=== PATIENT | female | born 2000 | race African-American/Black ===

== ENCOUNTER 2021-07-23 22:35 | Emergency (ER) | payer BC ==
--- NOTE | 2021-07-23 22:39 | ERPHSYRPT ---
- History of Present Illness Time Seen by Provider: 07/23/21 22:39 Historian: patient Exam Limitations: no limitations Physician History: This is a 21-year-old obese female who concluded her last menstrual period 3 days ago and presents with right flank and right lower quadrant abdominal pain. It is been present and worsening over the last 3 days. She has had no associated nausea, vomiting or diarrhea. She does have a family history of ovarian cyst. She is had no prior abdominal surgeries. Patient denies chest pain. Patient denies shortness of breath. Patient drove herself to the hospital and does not want any narcotic pain medicine at this time. She denies dysuria. She denies hematuria. The pain is described as sharp. She has never had this pain before Quality: sharpness (Right) Abdominal Pain Onset Location: RLQ, flank Pain Radiation: RLQ, flank (Right) Severity of Pain-Max: mild Severity of Pain-Current: mild Modifying Factors: Improves With: nothing Associated Symptoms: denies symptoms Previous symptoms: no prior history Allergies/Adverse Reactions: No Known Drug Allergies Allergy (Verified 07/23/21 22:47) Home Medications: No Reportable Medications [No Reported Medications] 07/23/21 [History] Travel Risk - International Travel Have you traveled outside of the country in past 3 weeks: No - Coronavirus Screening Are you exhibiting any of the following symptoms?: No Close contact with a COVID-19 positive Pt in past 14-21 Days: No - Review of Systems Constitutional: No Symptoms Eyes: No Symptoms Ears, Nose, & Throat: No Symptoms Respiratory: No Symptoms Cardiac: No Symptoms Abdominal/Gastrointestinal: Abdominal Pain Genitourinary Symptoms: Flank Pain (Right) Musculoskeletal: No Symptoms Skin: No Symptoms Neurological: No Symptoms Psychological: No Symptoms Endocrine: No Symptoms Hematologic/Lymphatic: No Symptoms Immunological/Allergic: No Symptoms All Other Systems: Reviewed and Negative - Past Medical History Pertinent Past Medical History: No - Past Surgical History Past Surgical History: No - Nursing Vital Signs Nursing Vital Signs: Initial Vital Signs Temperature 98.9 F 07/23/21 22:48 Pulse Rate 105 H 07/23/21 22:48 Respiratory Rate 18 07/23/21 22:48 Blood Pressure 128/72 07/23/21 22:48 O2 Sat by Pulse Oximetry 100 07/23/21 22:48 Pain Scale Pain Intensity 4 - Physical Exam General Appearance: no apparent distress, alert, anxiety, obese Eye Exam: PERRL/EOMI, eyes nml inspection Ears, Nose, Throat Exam: normal ENT inspection, moist mucous membranes Neck Exam: normal inspection, non-tender, supple, full range of motion Respiratory Exam: normal breath sounds, lungs clear, airway intact, No chest tenderness, No respiratory distress Cardiovascular Exam: regular rate/rhythm, normal heart sounds, normal peripheral pulses Gastrointestinal/Abdomen Exam: soft, normal bowel sounds, tenderness (Right lower quadrant), guarding (Right lower quadrant), rebound (Right lower quadrant) Pelvic Exam: not done Rectal Exam: not done Back Exam: normal inspection, normal range of motion, No CVA tenderness, No vertebral tenderness Extremity Exam: normal inspection, normal range of motion, pelvis stable Neurologic Exam: alert, oriented x 3, cooperative, fisher eel II-XII nml as tested, normal mood/affect, nml cerebellar function, nml station & gait, sensation nml Skin Exam: normal color, warm, dry Lymphatic Exam: No adenopathy SpO2 Interpretation: normal O2 Delivery: Room Air Ordered Tests: Active Orders 24 hr Category Date Time Status IV Insertion STAT Care 07/23/21 23:06 Active ABDOMEN AND PELVIS W/0 CONTRAS [CT] Stat Exams 07/24/21 00:23 Taken AMYLASE Stat Lab 07/23/21 22:50 Completed CBC W DIFF Stat Lab 07/23/21 22:50 Completed CMP Stat Lab 07/23/21 22:50 Completed CULTURE,URINE Stat Lab 07/23/21 23:08 Received HCG,QUALITATIVE URINE Stat Lab 07/23/21 23:08 Completed LIPASE Stat Lab 07/23/21 22:50 Completed UA W/RFX CULTURE Stat Lab 07/23/21 23:08 Completed Medication Summary Discontinued Medications Generic Name Dose Route Start Last Admin Trade Name Freq PRN Reason Stop Dose Admin Ketorolac Tromethamine 30 mg 07/23/21 23:06 07/23/21 23:09 Ketorolac Tromethamine 30 Mg/Ml Inj IV 07/23/21 23:07 30 mg STAT ONE Administration Ketorolac Tromethamine Confirm 07/23/21 23:08 Ketorolac Tromethamine 30 Mg/Ml Inj Administered 07/23/21 23:09 Dose 30 mg .ROUTE .[employer] ONE Lab/Rad Data: Laboratory Result Diagrams 07/23/21 22:50 07/23/21 22:50 Laboratory Results 07/23/21 07/23/21 07/23/21 Range/Units 23:08 23:08 22:50 WBC (4.0-10.5) x10^3/uL RBC (4.1-5.4) x10^6/uL Hgb (12.0-16.0) g/dL Hct (35-47) % MCV (78-100) fL MCH (26-32) pg MCHC (32-36) g/dL RDW (11.5-14.0) % Plt Count (150-450) x10^3/uL MPV (7.5-11.0) fL Gran % (36.0-66.0) % Immature Gran % (Auto) (0.00-0.4) % Nucleat RBC Rel Count (0.00-0.1) % Eos # (Auto) (0-0.5) x10^3/uL Immature Gran # (Auto) (0.00-0.03) x10^3u/L Absolute Lymphs (auto) (1.0-4.6) x10^3/uL Absolute Monos (auto) (0.0-1.3) x10^3/uL Absolute Nucleated RBC (0.00-0.01) x10^3u/L Lymphocytes % (24.0-44.0) % Monocytes % (0.0-12.0) % Eosinophils % (0.00-5.0) % Basophils % (0.0-0.4) % Absolute Granulocytes (1.4-6.9) x10^3/uL Basophils # (0-0.4) x10^3/uL Sodium 136 L (137-145) mmol/L Potassium 4.6 (3.5-5.1) mmol/L Chloride 104 (98-107) mmol/L Carbon Dioxide 25 (22-30) mmol/L Anion Gap 11.1 (5-15) MEQ/L BUN 11 (7-17) mg/dL Creatinine 0.97 (0.52-1.04) mg/dL Estimated GFR > 60.0 ML/MIN Glucose 85 (74-106) mg/dL Calcium 8.8 (8.4-10.2) mg/dL Total Bilirubin 0.70 (0.2-1.3) mg/dL AST 22 (14-36) U/L ALT 17 (0-35) U/L Alkaline Phosphatase 52 (38-126) U/L Serum Total Protein 7.1 (6.3-8.2) g/dL Albumin 3.7 (3.5-5.0) g/dL Amylase 59 (30-110) U/L Lipase 100 (23-300) U/L Urinalys Dipstick Clnc MAIN LAB Urine Color YELLOW (YELLOW) Urine Appearance CLEAR (CLEAR) Urine pH 5.5 (5-6) Ur Specific Boley 1.020 (1.005-1.025) POC Urine Protein Conf NEGATIVE (Negative) Urine Ketones NEGATIVE (NEGATIVE) Urine Nitrite NEGATIVE (NEGATIVE) Urine Bilirubin NEGATIVE (NEGATIVE) Urine Urobilinogen 0.2 (0-1) mg/dL Urine Leukocytes MODERATE (NEGATIVE) Urine WBC (Auto) 16-25 (0-5) /HPF Urine RBC (Auto) 16-25 (0-2) /HPF U Epithel Cells (Auto) RARE (FEW) /HPF Urine Bacteria (Auto) MANY (NEGATIVE) /HPF Urine RBC SMALL (0-5) Hai/ul Urine Mucus (Auto) SLIGHT (NEGATIVE) /HPF Ur Culture Indicated? YES Urine Glucose NEGATIVE (NEGATIVE) mg/dL Urine HCG, Qual NEGATIVE (Negative) 07/23/21 Range/Units 22:50 WBC 19.1 H (4.0-10.5) x10^3/uL RBC 4.65 (4.1-5.4) x10^6/uL Hgb 11.2 L (12.0-16.0) g/dL Hct 36.2 (35-47) % MCV 77.8 L (78-100) fL MCH 24.1 L (26-32) pg MCHC 30.9 L (32-36) g/dL RDW 19.7 H (11.5-14.0) % Plt Count 222 (150-450) x10^3/uL MPV 11.4 H (7.5-11.0) fL Gran % 79.3 H (36.0-66.0) % Immature Gran % (Auto) 0.4 (0.00-0.4) % Nucleat RBC Rel Count 0.0 (0.00-0.1) % Eos # (Auto) 0.03 (0-0.5) x10^3/uL Immature Gran # (Auto) 0.07 H (0.00-0.03) x10^3u/L Absolute Lymphs (auto) 2.66 (1.0-4.6) x10^3/uL Absolute Monos (auto) 1.17 (0.0-1.3) x10^3/uL Absolute Nucleated RBC 0.00 (0.00-0.01) x10^3u/L Lymphocytes % 13.9 L (24.0-44.0) % Monocytes % 6.1 (0.0-12.0) % Eosinophils % 0.2 (0.00-5.0) % Basophils % 0.1 (0.0-0.4) % Absolute Granulocytes 15.13 H (1.4-6.9) x10^3/uL Basophils # 0.02 (0-0.4) x10^3/uL Sodium (137-145) mmol/L Potassium (3.5-5.1) mmol/L Chloride (98-107) mmol/L Carbon Dioxide (22-30) mmol/L Anion Gap (5-15) MEQ/L BUN (7-17) mg/dL Creatinine (0.52-1.04) mg/dL Estimated GFR ML/MIN Glucose (74-106) mg/dL Calcium (8.4-10.2) mg/dL Total Bilirubin (0.2-1.3) mg/dL AST (14-36) U/L ALT (0-35) U/L Alkaline Phosphatase (38-126) U/L Serum Total Protein (6.3-8.2) g/dL Albumin (3.5-5.0) g/dL Amylase (30-110) U/L Lipase (23-300) U/L Urinalys Dipstick Clnc Urine Color (YELLOW) Urine Appearance (CLEAR) Urine pH (5-6) Ur Specific Boley (1.005-1.025) POC Urine Protein Conf (Negative) Urine Ketones (NEGATIVE) Urine Nitrite (NEGATIVE) Urine Bilirubin (NEGATIVE) Urine Urobilinogen (0-1) mg/dL Urine Leukocytes (NEGATIVE) Urine WBC (Auto) (0-5) /HPF Urine RBC (Auto) (0-2) /HPF U Epithel Cells (Auto) (FEW) /HPF Urine Bacteria (Auto) (NEGATIVE) /HPF Urine RBC (0-5) Hai/ul Urine Mucus (Auto) (NEGATIVE) /HPF Ur Culture Indicated? Urine Glucose (NEGATIVE) mg/dL Urine HCG, Qual (Negative) - Progress Progress: improved, pain not gone completely Progress Note: 07/24/21 01:40 CAT scan of the abdomen and pelvis without contrast shows several enlarged mesenteric lymph nodes in the right lower quadrant region. This is consistent with mesenteric adenitis. The appendix is visualized and there is no evidence of appendicitis. Reproductive organs are unremarkable. Counseled pt/family regarding: lab results, diagnosis, need for follow-up, rad results - Departure Departure Disposition: Home Clinical Impression: Mesenteric adenitis Condition: Stable Critical Care Time: No Additional Instructions: Drink plenty of fluids. Use Tylenol and ibuprofen for pain and fever control. Follow-up with your primary care physician for further management.
[2021-07-23] MEDS ORDERED: TORAdol 30 mg Injection IV ONE (23:06)
[2021-07-23] MEDS ORDERED: TORAdol 30 mg Injection ONE (23:08)
[2021-07-23 23:20] LABS: Absolute Neutrophil Ct (ANC) 15.13 x10^3/uL (1.4-6.9); Basophil (Absolute #) 0.02 x10^3/uL (0-0.4); Eosinophil % 0.2 % (0.00-5.0); Eosinophil (Absolute #) 0.03 x10^3/uL (0-0.5); Hematocrit 36.2 % (35-47); Hemoglobin 11.2 g/dL (12.0-16.0); Lymphocyte (Absolute #) 2.66 x10^3/uL (1.0-4.6); Lymphocytes % 13.9 % (24.0-44.0); Mean Cell Volume 77.8 fL (78-100); Mean Corpuscular Hemoglobin 24.1 pg (26-32); Mean Corpuscular Hgb Concent. 30.9 g/dL (32-36); Mean Platelet Volume 11.4 fL (7.5-11.0); Monocyte (Absolute #) 1.17 x10^3/uL (0.0-1.3); Monocytes % 6.1 % (0.0-12.0); Neutrophil % 79.3 % (36.0-66.0); Platelet Count 222 x10^3/uL (150-450); Red Blood Count 4.65 x10^6/uL (4.1-5.4); Red Cell Distribution Width 19.7 % (11.5-14.0); White Blood Count 19.1 x10^3/uL (4.0-10.5)
[2021-07-23 23:24] LABS: Appearance CLEAR (CLEAR); Bacteria MANY /HPF (NEGATIVE); Bilirubin NEGATIVE (NEGATIVE); Epithelial Cells RARE /HPF (FEW); Glucose NEGATIVE (NEGATIVE); Mucus SLIGHT /HPF (NEGATIVE)
[2021-07-23 23:25] LABS: Ketones NEGATIVE (NEGATIVE); Nitrite NEGATIVE (NEGATIVE); Ph 5.5 (5-6); Protein,Urine Dip NEGATIVE (Negative); RBC SMALL Ery/ul (0-5); Urine Cultured Indicated? YES; Urobilinogen 0.2 mg/dL (0-1)
[2021-07-23 23:43] LABS: Dipstick done @ ? MAIN LAB
[2021-07-24 00:05] LABS: ALBUMIN 3.7 g/dL (3.5-5.0); ALKALINE PHOSPHATASE 52 U/L (38-126); AMYLASE 59 U/L (30-110); ANION GAP 11.1 MEQ/L (5-15); BLOOD UREA NITROGEN 11 mg/dL (7-17); CHLORIDE 104 mmol/L (98-107); Calcium 8.8 mg/dL (8.4-10.2); Carbon Dioxide 25 mmol/L (22-30); Creatinine 1 0.97 mg/dL (0.52-1.04); EST GLOMERULAR FILTRATION RATE > 60.0 ML/MIN; Glucose 85 mg/dL (74-106); LIPASE 100 U/L (23-300); Potassium 4.6 mmol/L (3.5-5.1); SGOT/AST 22 U/L (14-36); SGPT/ALT 17 U/L (0-35); SODIUM 136 mmol/L (137-145); Total Protein 7.1 g/dL (6.3-8.2)
[2021-07-24 00:09] VITALS: BP 105/53
[2021-07-24 01:29] VITALS: PULSE 94; O2SAT 98
[2021-07-24] MEDS ORDERED: Levofloxacin 500 MG Tablet PO ONE (01:43)
[2021-07-24] MEDS ORDERED: Levofloxacin 500 MG Tablet ONE (01:46)
--- NOTE | 2021-07-24 08:36 | XRAY ---
Indication: Right lower quadrant pain. Multiple contiguous axial images obtained through the abdomen and pelvis without contrast. Comparison: None Lung bases are clear. Heart not enlarged. Noncontrasted stomach and bowel loops appear nonobstructed with normal appendix. No free fluid/air. 20.8 cm fatty hepatomegaly. Scattered subcentimeter mesenteric nodes, possible adenitis. Remaining liver, gallbladder, pancreas, spleen, adrenal glands, kidneys, ureters, bladder, and aorta are unremarkable for noncontrast exam. Osseous structures intact. No ventral or inguinal hernias. Impression: 1. Fatty hepatomegaly. 2. Scattered tiny mesenteric nodes, possible mesenteric adenitis. 3. Remaining CT abdomen/pelvis without contrast exam is negative. Comment: Preliminary interpretation made by [facility]. No critical discrepancy.
== END 2021-07-24 01:56 | disposition home or self-care (01) ==
LOC: ED 22:35
DX: I88.0 Nonspecific mesenteric lymphadenitis (principal); N39.0 Urinary tract infection, site not specified; R10.31 Right lower quadrant pain
CPT/HCPCS: 36000; 36415; 74176; 80053; 81015; 82150; 83690; 84703; 85025; 87077; 87086; 87186; 96374; 99284; J1885; A9270-GY

== ENCOUNTER 2021-11-29 10:47 | Emergency (ER) | payer BC ==
[2021-11-29] MEDS ORDERED: Sodium Chloride 0.9% 1000 ML 1,000 ML IV STA ×2 (11:23→12:50)
[2021-11-29] MEDS ORDERED: TYLENOL 325 MG PO ONE (11:24)
[2021-11-29] MEDS ORDERED: TORAdol 30 mg Injection IV ONE (11:24)
[2021-11-29] MEDS ORDERED: Reglan 10 MG/2 ML IV ONE (11:24)
[2021-11-29] MEDS ORDERED: BENADRYL 50 MG/ML IV ONE (11:24)
[2021-11-29] MEDS ORDERED: TYLENOL 325 MG ONE (11:30)
[2021-11-29] MEDS ORDERED: BENADRYL 50 MG/ML ONE (11:30)
[2021-11-29] MEDS ORDERED: Sodium Chloride 0.9% 1000 ML 1,000 ML ONE ×2 (11:30→12:50)
[2021-11-29] MEDS ORDERED: TORAdol 30 mg Injection ONE (11:30)
[2021-11-29] MEDS ORDERED: Reglan 10 MG/2 ML ONE (11:30)
[2021-11-29 11:48] LABS: Absolute Neutrophil Ct (ANC) 9.78 x10^3/uL (1.4-6.9); Basophil (Absolute #) 0.02 x10^3/uL (0-0.4); Eosinophil (Absolute #) 0 x10^3/uL (0-0.5); Hematocrit 30.8 % (35-47); Hemoglobin 9.1 g/dL (12.0-16.0); Lymphocyte (Absolute #) 1.21 x10^3/uL (1.0-4.6); Lymphocytes % 10.1 % (24.0-44.0); Mean Cell Volume 75.1 fL (78-100); Mean Corpuscular Hemoglobin 22.2 pg (26-32); Mean Corpuscular Hgb Concent. 29.5 g/dL (32-36); Mean Platelet Volume 10.2 fL (7.5-11.0); Monocyte (Absolute #) 0.89 x10^3/uL (0.0-1.3); Monocytes % 7.5 % (0.0-12.0); Neutrophil % 81.9 % (36.0-66.0); Platelet Count 262 x10^3/uL (150-450); Red Cell Distribution Width 16.5 % (11.5-14.0); White Blood Count 11.9 x10^3/uL (4.0-10.5)
--- NOTE | 2021-11-29 11:49 | ERPHSYRPT ---
- History of Present Illness Time Seen by Provider: 11/29/21 10:49 Source: patient Exam Limitations: no limitations Patient Subjective Stated Complaint: pt here for shortness.weakness, she states she thinks her hgb is low, she has been on her period since 11/12/2021. Triage Nursing Assessment: pt alert, walked in, resp easy, face mask in place, s kin warm and dry, abd soft Physician History: 21 years old presented in the ER with multiple complaints including headache, body aches, shortness of breath, lack of energy going on for the last couple of days. Patient has a history of anemia secondary to heavy cycles and has been bleeding since 11/12/2021. Does have history of migraine poorly controlled and has been taking Excedrin Migraine with no relief and headache all over moderate intensity without any focal numbness tingling or weakness. No difficulty speech. Denies any chest pain but generalized body aches all over. Patient is tachycardic on presentation and reports having similar symptoms last time when she was anemic secondary to excessive cyclical bleed needing transfusions. No chest pain reported. Timing/Duration: day(s) (2), gradual onset, worse Severity: moderate Associated Symptoms: shortness of breath, headaches, malaise, weakness, No fever Allergies/Adverse Reactions: No Known Drug Allergies Allergy (Verified 07/23/21 22:47) Home Medications: Iron 18 mg PO DAILY 11/29/21 [History] Hx Tetanus, Diphtheria Vaccination/Date Given: Yes Hx Influenza Vaccination/Date Given: No Hx Pneumococcal Vaccination/Date Given: No Immunizations Up to Date: Yes Travel Risk - International Travel Have you traveled outside of the country in past 3 weeks: No - Coronavirus Screening Are you exhibiting any of the following symptoms?: No Close contact with a COVID-19 positive Pt in past 14-21 Days: No - Vaccine Status Have you recieved a Covid-19 vaccination: Yes 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: [facility] - Vaccination Dates Date of 2cond Vaccination (if applicable): apr 2020 - Review of Systems Constitutional: Fatigue, Weakness Eyes: No Symptoms Ears, Nose, & Throat: No Symptoms Respiratory: Dyspnea Cardiac: No Symptoms Abdominal/Gastrointestinal: No Symptoms Genitourinary Symptoms: No Symptoms Musculoskeletal: Myalgias Skin: No Symptoms Neurological: Headache Psychological: No Symptoms Endocrine: No Symptoms Hematologic/Lymphatic: No Symptoms Immunological/Allergic: No Symptoms - Past Medical History Pertinent Past Medical History: No Neurological History: No Pertinent History ENT History: No Pertinent History Cardiac History: No Pertinent History Respiratory History: Asthma Endocrine Medical History: No Pertinent History Musculoskeletal History: No Pertinent History GI Medical History: No Pertinent History History: No Pertinent History Psycho-Social History: No Pertinent History Female Reproductive Disorders: No Pertinent History Other Medical History: anemia - Past Surgical History Past Surgical History: No Other Surgical History: cyst removed - Social History Smoking Status: Never smoker Exposure to second hand smoke: No Drug Use: none Patient Lives Alone: Yes - Female History Hx Last Menstrual Period: now Hx Now: No - Nursing Vital Signs Nursing Vital Signs: Initial Vital Signs Temperature 97.2 F 11/29/21 10:49 Pulse Rate 128 H 11/29/21 10:49 Respiratory Rate 18 11/29/21 10:49 Blood Pressure 154/80 11/29/21 10:49 O2 Sat by Pulse Oximetry 97 11/29/21 10:49 Pain Scale Pain Intensity 0 - Physical Exam General Appearance: no apparent distress, alert Eye Exam: PERRL/EOMI Ears, Nose, Throat Exam: normal ENT inspection, pharynx normal, moist mucous membranes Neck Exam: normal inspection, non-tender, supple, full range of motion Respiratory Exam: normal breath sounds, lungs clear Cardiovascular Exam: normal heart sounds, tachycardia Gastrointestinal/Abdomen Exam: soft, normal bowel sounds, No tenderness Back Exam: normal inspection, normal range of motion Extremity Exam: normal inspection, normal range of motion Neurologic Exam: alert, oriented x 3, cooperative Skin Exam: normal color SpO2 Interpretation: normal SpO2: 98 O2 Delivery: Room Air - Course EKG Interpreted by Me: RATE (118), Sinus Tach, NORMAL AXIS, NORMAL INTERVALS, Non-specific ST Changes, Other (Nonspecific T wave changes) Ordered Tests: Medication Summary Discontinued Medications Generic Name Dose Route Start Last Admin Trade Name Dieudonneq PRN Reason Stop Dose Admin Acetaminophen 975 mg 11/29/21 11:24 11/29/21 11:34 Acetaminophen 325 Mg Tablet PO 11/29/21 11:25 975 mg STAT ONE Administration Acetaminophen Confirm 11/29/21 11:30 Acetaminophen 325 Mg Tablet Administered 11/29/21 11:31 Dose 975 mg .ROUTE .STK-MED ONE Diphenhydramine HCl 50 mg 11/29/21 11:24 11/29/21 11:33 Diphenhydramine Hcl 50 Mg/Ml Vial IV 11/29/21 11:25 50 mg STAT ONE Administration Diphenhydramine HCl Confirm 11/29/21 11:30 Diphenhydramine Hcl 50 Mg/Ml Vial Administered 11/29/21 11:31 Dose 50 mg .ROUTE .STK-MED ONE Sodium Chloride 1,000 mls @ 999 mls/hr 11/29/21 11:23 11/29/21 12:34 Sodium Chloride 0.9% 1000 Ml IV 11/29/21 12:23 Infused .Q1H1M STA Infusion Sodium Chloride Confirm 11/29/21 11:30 Sodium Chloride 0.9% 1000 Ml Administered 11/29/21 11:31 Dose 1,000 mls @ ud .ROUTE .STK-MED ONE Sodium Chloride 1,000 mls @ 999 mls/hr 11/29/21 12:50 11/29/21 13:52 Sodium Chloride 0.9% 1000 Ml IV 11/29/21 13:50 Infused .Q1H1M STA Infusion Sodium Chloride Confirm 11/29/21 12:50 Sodium Chloride 0.9% 1000 Ml Administered 11/29/21 12:51 Dose 1,000 mls @ ud .ROUTE .STK-MED ONE Ketorolac Tromethamine 30 mg 11/29/21 11:24 11/29/21 11:34 Ketorolac Tromethamine 30 Mg/Ml Inj IV 11/29/21 11:25 30 mg STAT ONE Administration Ketorolac Tromethamine Confirm 11/29/21 11:30 Ketorolac Tromethamine 30 Mg/Ml Inj Administered 11/29/21 11:31 Dose 30 mg .ROUTE .STK-MED ONE Metoclopramide HCl 10 mg 11/29/21 11:24 11/29/21 11:34 Metoclopramide Hcl 10 Mg/2 Ml Vial IV 11/29/21 11:25 10 mg STAT ONE Administration Metoclopramide HCl Confirm 11/29/21 11:30 Metoclopramide Hcl 10 Mg/2 Ml Vial Administered 11/29/21 11:31 Dose 10 mg .ROUTE .STK-MED ONE Lab/Rad Data: Laboratory Result Diagrams 11/29/21 11:23 11/29/21 11:35 Laboratory Results 11/29/21 11/29/21 11/29/21 Range/Units Unknown Unknown 15:48 WBC (4.0-10.5) x10^3/uL RBC (4.1-5.4) x10^6/uL Hgb (12.0-16.0) g/dL Hct (35-47) % MCV (78-100) fL MCH (26-32) pg MCHC (32-36) g/dL RDW (11.5-14.0) % Plt Count (150-450) x10^3/uL MPV (7.5-11.0) fL Gran % (36.0-66.0) % Immature Gran % (Auto) (0.00-0.4) % Nucleat RBC Rel Count (0.00-0.1) % Eos # (Auto) (0-0.5) x10^3/uL Immature Gran # (Auto) (0.00-0.03) x10^3u/L Absolute Lymphs (auto) (1.0-4.6) x10^3/uL Absolute Monos (auto) (0.0-1.3) x10^3/uL Absolute Nucleated RBC (0.00-0.01) x10^3u/L Lymphocytes % (24.0-44.0) % Monocytes % (0.0-12.0) % Eosinophils % (0.00-5.0) % Basophils % (0.0-0.4) % Absolute Granulocytes (1.4-6.9) x10^3/uL Basophils # (0-0.4) x10^3/uL D-Dimer (0.0-0.50) mg/L Sodium (137-145) mmol/L Potassium (3.5-5.1) mmol/L Chloride (98-107) mmol/L Carbon Dioxide (22-30) mmol/L Anion Gap (5-15) MEQ/L BUN (7-17) mg/dL Creatinine (0.52-1.04) mg/dL Estimated GFR ML/MIN Glucose (74-106) mg/dL Lactic Acid (0.4-2.0) Calcium (8.4-10.2) mg/dL Magnesium (1.6-2.3) mg/dL Total Bilirubin (0.2-1.3) mg/dL AST (14-36) U/L ALT (0-35) U/L Alkaline Phosphatase (38-126) U/L Troponin I < 0.012 (0.000-0.034) ng/mL Serum Total Protein (6.3-8.2) g/dL Albumin (3.5-5.0) g/dL Serum , Qual NEGATIVE (Negative) Urinalys Dipstick Clnc MAIN LAB Urine Color YELLOW (YELLOW) Urine Appearance SLIGHTLY CLOUDY (CLEAR) Urine pH 6.0 (5-6) Ur Specific [place] 1.010 (1.005-1.025) POC Urine Protein Conf NEGATIVE (Negative) Urine Ketones NEGATIVE (NEGATIVE) Urine Nitrite NEGATIVE (NEGATIVE) Urine Bilirubin NEGATIVE (NEGATIVE) Urine Urobilinogen 0.2 (0-1) mg/dL Urine Leukocytes TRACE (NEGATIVE) Urine WBC (Auto) 6-10 (0-5) /HPF Urine RBC (Auto) >101 (0-2) /HPF U Epithel Cells (Auto) RARE (FEW) /HPF Urine Bacteria (Auto) FEW (NEGATIVE) /HPF Urine RBC LARGE (0-5) Hai/ul Urine Mucus (Auto) SLIGHT (NEGATIVE) /HPF Ur Culture Indicated? YES Urine Glucose NEGATIVE (NEGATIVE) mg/dL Influenza Type A Ag (NEGATIVE) Influenza Type B Ag (NEGATIVE) RSV (PCR) (Negative) SARS-CoV-2 (PCR) (NEGATIVE) 11/29/21 11/29/21 11/29/21 Range/Units 13:47 11:35 11:35 WBC (4.0-10.5) x10^3/uL RBC (4.1-5.4) x10^6/uL Hgb (12.0-16.0) g/dL Hct (35-47) % MCV (78-100) fL MCH (26-32) pg MCHC (32-36) g/dL RDW (11.5-14.0) % Plt Count (150-450) x10^3/uL MPV (7.5-11.0) fL Gran % (36.0-66.0) % Immature Gran % (Auto) (0.00-0.4) % Nucleat RBC Rel Count (0.00-0.1) % Eos # (Auto) (0-0.5) x10^3/uL Immature Gran # (Auto) (0.00-0.03) x10^3u/L Absolute Lymphs (auto) (1.0-4.6) x10^3/uL Absolute Monos (auto) (0.0-1.3) x10^3/uL Absolute Nucleated RBC (0.00-0.01) x10^3u/L Lymphocytes % (24.0-44.0) % Monocytes % (0.0-12.0) % Eosinophils % (0.00-5.0) % Basophils % (0.0-0.4) % Absolute Granulocytes (1.4-6.9) x10^3/uL Basophils # (0-0.4) x10^3/uL D-Dimer (0.0-0.50) mg/L Sodium 135 L (137-145) mmol/L Potassium 3.5 (3.5-5.1) mmol/L Chloride 103 (98-107) mmol/L Carbon Dioxide 22 (22-30) mmol/L Anion Gap 13.6 (5-15) MEQ/L BUN 8 (7-17) mg/dL Creatinine 1.23 H (0.52-1.04) mg/dL Estimated GFR 57.5 ML/MIN Glucose 109 H (74-106) mg/dL Lactic Acid (0.4-2.0) Calcium 8.5 (8.4-10.2) mg/dL Magnesium 1.8 (1.6-2.3) mg/dL Total Bilirubin 0.40 (0.2-1.3) mg/dL AST 23 (14-36) U/L ALT 19 (0-35) U/L Alkaline Phosphatase 54 (38-126) U/L Troponin I < 0.012 (0.000-0.034) ng/mL Serum Total Protein 7.7 (6.3-8.2) g/dL Albumin 4.1 (3.5-5.0) g/dL Serum , Qual (Negative) Urinalys Dipstick Clnc Urine Color (YELLOW) Urine Appearance (CLEAR) Urine pH (5-6) Ur Specific [place] (1.005-1.025) POC Urine Protein Conf (Negative) Urine Ketones (NEGATIVE) Urine Nitrite (NEGATIVE) Urine Bilirubin (NEGATIVE) Urine Urobilinogen (0-1) mg/dL Urine Leukocytes (NEGATIVE) Urine WBC (Auto) (0-5) /HPF Urine RBC (Auto) (0-2) /HPF U Epithel Cells (Auto) (FEW) /HPF Urine Bacteria (Auto) (NEGATIVE) /HPF Urine RBC (0-5) Hai/ul Urine Mucus (Auto) (NEGATIVE) /HPF Ur Culture Indicated? Urine Glucose (NEGATIVE) mg/dL Influenza Type A Ag NEGATIVE (NEGATIVE) Influenza Type B Ag NEGATIVE (NEGATIVE) RSV (PCR) NEGATIVE (Negative) SARS-CoV-2 (PCR) NEGATIVE (NEGATIVE) 11/29/21 11/29/21 11/29/21 Range/Units 11:30 11:30 11:23 WBC 11.9 H (4.0-10.5) x10^3/uL RBC 4.10 (4.1-5.4) x10^6/uL Hgb 9.1 L (12.0-16.0) g/dL Hct 30.8 L (35-47) % MCV 75.1 L (78-100) fL MCH 22.2 L (26-32) pg MCHC 29.5 L (32-36) g/dL RDW 16.5 H (11.5-14.0) % Plt Count 262 (150-450) x10^3/uL MPV 10.2 (7.5-11.0) fL Gran % 81.9 H (36.0-66.0) % Immature Gran % (Auto) 0.3 (0.00-0.4) % Nucleat RBC Rel Count 0.0 (0.00-0.1) % Eos # (Auto) 0 (0-0.5) x10^3/uL Immature Gran # (Auto) 0.04 H (0.00-0.03) x10^3u/L Absolute Lymphs (auto) 1.21 (1.0-4.6) x10^3/uL Absolute Monos (auto) 0.89 (0.0-1.3) x10^3/uL Absolute Nucleated RBC 0.00 (0.00-0.01) x10^3u/L Lymphocytes % 10.1 L (24.0-44.0) % Monocytes % 7.5 (0.0-12.0) % Eosinophils % 0.0 (0.00-5.0) % Basophils % 0.2 (0.0-0.4) % Absolute Granulocytes 9.78 H (1.4-6.9) x10^3/uL Basophils # 0.02 (0-0.4) x10^3/uL D-Dimer 4.55 H* (0.0-0.50) mg/L Sodium (137-145) mmol/L Potassium (3.5-5.1) mmol/L Chloride (98-107) mmol/L Carbon Dioxide (22-30) mmol/L Anion Gap (5-15) MEQ/L BUN (7-17) mg/dL Creatinine (0.52-1.04) mg/dL Estimated GFR ML/MIN Glucose (74-106) mg/dL Lactic Acid 1.5 (0.4-2.0) Calcium (8.4-10.2) mg/dL Magnesium (1.6-2.3) mg/dL Total Bilirubin (0.2-1.3) mg/dL AST (14-36) U/L ALT (0-35) U/L Alkaline Phosphatase (38-126) U/L Troponin I (0.000-0.034) ng/mL Serum Total Protein (6.3-8.2) g/dL Albumin (3.5-5.0) g/dL Serum , Qual (Negative) Urinalys Dipstick Clnc Urine Color (YELLOW) Urine Appearance (CLEAR) Urine pH (5-6) Ur Specific [place] (1.005-1.025) POC Urine Protein Conf (Negative) Urine Ketones (NEGATIVE) Urine Nitrite (NEGATIVE) Urine Bilirubin (NEGATIVE) Urine Urobilinogen (0-1) mg/dL Urine Leukocytes (NEGATIVE) Urine WBC (Auto) (0-5) /HPF Urine RBC (Auto) (0-2) /HPF U Epithel Cells (Auto) (FEW) /HPF Urine Bacteria (Auto) (NEGATIVE) /HPF Urine RBC (0-5) Hai/ul Urine Mucus (Auto) (NEGATIVE) /HPF Ur Culture Indicated? Urine Glucose (NEGATIVE) mg/dL Influenza Type A Ag (NEGATIVE) Influenza Type B Ag (NEGATIVE) RSV (PCR) (Negative) SARS-CoV-2 (PCR) (NEGATIVE) - Progress Progress: improved Progress Note: 11/29/21 17:32 21 years old is evaluated for multiple flulike symptoms. She has positive orthostatics. Given fluid bolus x2. Initially patient was tachycardic around 120, which improved to 80s on reevaluation. Feeling much better. She is given symptomatic treatment for headache as well. Nonfocal neuro exam. Do not think needs CT imaging of her head. Work-up showed white count of 11, chemistries showed some BASSEM, no baseline available but patient denies having any known history of kidney failure. Negative COVID/flu. Has elevated D-dimer and CTA is negative for PE, pneumonia or any other acute findings. 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 Urine was not a clean sample and do not think he has UTI. Does not have any symptoms. I believe patient has dehydration, recommended increase hydration and avoiding NSAIDs and recheck of kidney functions. Do not think patient needs to be admitted and is stable for discharge with outpatient follow-up. Discussed signs symptoms of worsening needing return to ER which she seems understanding. 11/29/21 17:40 Counseled pt/family regarding: lab results, diagnosis, need for follow-up, rad results - Departure Departure Disposition: Home Clinical Impression: Orthostasis, Dehydration, BASSEM (acute kidney injury), General weakness, Anemia Condition: Stable Critical Care Time: No Referrals: SHAWNA GASPAR MD [ACTIVE STAFF] - Follow Up with PCP/3 days DOCTOR,NO FAMILY [Primary Care Provider] - Follow up/PCP as directed NAVNEET JACKSON DO [ACTIVE STAFF] - Follow up/PCP as directed (Call for appointment) Instructions: Dehydration, Adult (DC), Kidney Failure (DC) Additional Instructions: Drink plenty of fluids to keep yourself well-hydrated. Follow-up with primary care for reevaluation. Do not take ibuprofen/Aleve or any other NSAIDs. Take Tylenol as needed. Have your kidney functions rechecked early next week. Return to ER for any worsening. Continue with iron supplements.
[2021-11-29 12:14] LABS: ALBUMIN 4.1 g/dL (3.5-5.0); ANION GAP 13.6 MEQ/L (5-15); BILIRUBIN,TOTAL 0.4 mg/dL (0.2-1.3); Calcium 8.5 mg/dL (8.4-10.2); Creatinine 1 1.23 mg/dL (0.52-1.04); EST GLOMERULAR FILTRATION RATE 57.5 ML/MIN; MAGNESIUM 1.8 mg/dL (1.6-2.3); Potassium 3.5 mmol/L (3.5-5.1); Total Protein 7.7 g/dL (6.3-8.2)
[2021-11-29 14:23] LABS: INFLUENZA A NEGATIVE (NEGATIVE); INFLUENZA B NEGATIVE (NEGATIVE); RESPIRATORY SYNCTIAL VIRUS NEGATIVE (Negative); SARS-CoV-2 Xpert Express NEGATIVE (NEGATIVE)
[2021-11-29 14:40] VITALS: PULSE 84
[2021-11-29 17:06] LABS: Appearance SLIGHTLY CLOUDY (CLEAR); Bilirubin NEGATIVE (NEGATIVE); Glucose NEGATIVE (NEGATIVE); Ketones NEGATIVE (NEGATIVE); Protein,Urine Dip NEGATIVE (Negative); RBC LARGE Ery/ul (0-5); Urobilinogen 0.2 mg/dL (0-1)
[2021-11-29 17:07] LABS: Dipstick done @ ? MAIN LAB; Nitrite NEGATIVE (NEGATIVE)
[2021-11-29 17:13] LABS: Bacteria FEW /HPF (NEGATIVE); Epithelial Cells RARE /HPF (FEW); Mucus SLIGHT /HPF (NEGATIVE)
[2021-11-29 17:24] LABS: RBC >101 /HPF (0-2); Urine Cultured Indicated? YES
[2021-11-29 17:35] VITALS: O2SAT 98
[2021-11-29 17:37] VITALS: BP 125/74
--- NOTE | 2021-11-29 17:54 | XRAY ---
Exam: CT of the chest with IV contrast per PE protocol from 11/29/2021. CTDI: 32.37 mGy Comparison: None. Indication: 21-year-old female with elevated d-dimer of 4.55 and shortness of breath. Technique: Post-IV contrast axial images were obtained through the chest during automated IV injection of 100 cc of Isovue-370 contrast material using the PE protocol. Reconstructed coronal and sagittal images were created and reviewed. Findings: The patient is noted to be very obese. This results in mild increased CT noise, but the enhancing pulmonary arteries are still quite well seen and reveal no filling defects to suggest clot/emboli. The thoracic aorta reveals no aneurysm or dissection. No abnormal mass or lymphadenopathy is seen within the franco or mediastinum. Some probable reactive lymph nodes are seen within the axilla, the largest within the right axilla measuring about 2.5 cm in greatest diameter. The thyroid gland appears grossly unremarkable. The lungs reveal no suspicious infiltrates, soft tissue lung nodules, pneumothorax, or pleural fluid. The visualized upper abdomen reveals some mild hepatic steatosis. The adrenal glands and remainder of the visualized upper abdomen appears unremarkable. The skeleton reveals no acute fracture or aggressive bone lesion. Impression: 1. No CT evidence of pulmonary embolism is seen. 2. Hepatic steatosis. 3. No other acute cardiopulmonary disease is seen.
--- NOTE | 2021-11-29 18:07 | XRAY ---
Exam: AP upright portal chest film from 11/29/2021. Comparison: None. Indication: Shortness of breath today. Findings: The transverse heart size is normal. The franco and mediastinal structures appear unremarkable. The lungs are adequately inflated. No air space infiltrates, vascular congestion, pneumothorax, or pleural fluid is seen. There is a minimal/mild S-shaped convexity of the visualized thoracic spine with convexity of the mid thoracic spine toward the right and the lower thoracic spine toward the left. No acute osseous process is seen. Impression: 1. No acute cardiopulmonary disease is seen. 2. Minimal/mild S-shaped scoliosis.
== END 2021-11-29 17:43 | disposition home or self-care (01) ==
LOC: ED 10:47
DX: E86.0 Dehydration (principal); N17.9 Acute kidney failure, unspecified; I95.1 Orthostatic hypotension; R53.1 Weakness; D64.9 Anemia, unspecified; R51.9 Headache, unspecified; M79.10 Myalgia, unspecified site; R06.02 Shortness of breath
CPT/HCPCS: 0241U; 36000; 36415; 71045; 71260; 80053; 81015; 83605; 83735; 84484; 84703; 85025; 85379; 87086; 93005; 93041; 96374; 96375; 99284; J1200; J1885; A9270-GY

== ENCOUNTER 2021-12-05 13:55 | Emergency (ER) | payer BC ==
--- NOTE | 2021-12-05 14:01 | ERPHSYRPT ---
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 She ordinarily lives out of town. Patient has been in our emergency department on 11/29/2021 for somewhat similar symptoms. Patient has a chronic, global headache that has been persistent since that date. In addition, patient has chronic anemia secondary to heavy and persistent vaginal bleeding since 11/12/2021. Patient has an appointment to see a resistance brazer on 12/13/2021. She stated that she would not of come into the emergency department except for the fact she does not have a primary care provider and today, her headache was worse precipitating an episode of vomiting. Patient has no known drug allergies. She has no abdominal pain. She denies chest pain. She denies shortness of breath. Activities at Onset: none Quality: throbbing (Headache) Severity of Pain-Max: none Severity of Pain-Current: none Modifying Factors: Improves With: vomiting Associated Symptoms: headache Previous symptoms: same symptoms as today, recently seen Allergies/Adverse Reactions: No Known Drug Allergies Allergy (Verified 12/05/21 14:16) Home Medications: Iron 18 mg PO DAILY 11/29/21 [History] Hx Tetanus, Diphtheria Vaccination/Date Given: Yes Hx Influenza Vaccination/Date Given: No Hx Pneumococcal Vaccination/Date Given: No Travel Risk - International Travel Have you traveled outside of the country in past 3 weeks: No - Coronavirus Screening Are you exhibiting any of the following symptoms?: No Close contact with a COVID-19 positive Pt in past 14-21 Days: No - Vaccine Status Have you recieved a Covid-19 vaccination: Yes 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: [employer] - Vaccination Dates Date of 2cond Vaccination (if applicable): apr 2020 - Review of Systems Constitutional: No Symptoms Eyes: No Symptoms Ears, Nose, & Throat: No Symptoms Respiratory: No Symptoms Cardiac: No Symptoms Abdominal/Gastrointestinal: Nausea, Vomiting, No Abdominal Pain, No Diarrhea, No Constipation Genitourinary Symptoms: Vaginal Bleeding, No Dysuria, No Urgency, No Flank Pain Musculoskeletal: No Symptoms Skin: No Symptoms Neurological: No Symptoms Psychological: No Symptoms Endocrine: No Symptoms Hematologic/Lymphatic: No Symptoms Immunological/Allergic: No Symptoms All Other Systems: Reviewed and Negative - Past Medical History Pertinent Past Medical History: No Neurological History: No Pertinent History ENT History: No Pertinent History Cardiac History: No Pertinent History Respiratory History: Asthma Endocrine Medical History: No Pertinent History Musculoskeletal History: No Pertinent History GI Medical History: No Pertinent History History: No Pertinent History Psycho-Social History: No Pertinent History Female Reproductive Disorders: No Pertinent History Other Medical History: anemia - Past Surgical History Past Surgical History: No Other Surgical History: cyst removed - Social History Smoking Status: Never smoker Exposure to second hand smoke: No Drug Use: none Patient Lives Alone: Yes - Nursing Vital Signs Nursing Vital Signs: Initial Vital Signs Temperature 97.2 F 12/05/21 14:02 Pulse Rate 109 H 12/05/21 14:02 Blood Pressure 150/94 12/05/21 14:02 O2 Sat by Pulse Oximetry 98 12/05/21 14:02 Pain Scale Pain Intensity 7 - Physical Exam General Appearance: no apparent distress, alert, anxiety, obese Eye Exam: PERRL/EOMI, eyes nml inspection Ears, Nose, Throat Exam: normal ENT inspection, moist mucous membranes Neck Exam: normal inspection, non-tender, supple, full range of motion Respiratory Exam: normal breath sounds, lungs clear, airway intact, No chest tenderness, No respiratory distress Cardiovascular Exam: regular rate/rhythm, normal heart sounds, normal peripheral pulses Gastrointestinal/Abdomen Exam: soft, normal bowel sounds, No tenderness Pelvic Exam: not done Rectal Exam: not done Back Exam: normal inspection, normal range of motion, No CVA tenderness, No vertebral tenderness Extremity Exam: normal inspection, normal range of motion, pelvis stable Neurologic Exam: alert, oriented x 3, cooperative, 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 II-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 as tested, normal mood/affect, nml cerebellar function, nml station & gait, sensation nml Skin Exam: normal color, warm, dry Lymphatic Exam: No adenopathy SpO2 Interpretation: normal O2 Delivery: Room Air - Course Nursing assessment & vital signs reviewed: Yes Ordered Tests: Active Orders 24 hr Category Date Time Status IV Insertion STAT Care 12/05/21 14:25 Active Pulse Oximetry (ED) STAT Care 12/05/21 14:25 Active HEAD WITHOUT CONTRAST [CT] Stat Exams 12/05/21 15:17 Completed BLOOD CULTURE Stat Lab 12/05/21 14:26 Received CBC W DIFF Stat Lab 12/05/21 14:30 Completed CMP Stat Lab 12/05/21 14:30 Completed CULTURE,URINE Stat Lab 12/05/21 14:28 Received HCG,QUALITATIVE URINE Stat Lab 12/05/21 14:27 Completed UA W/RFX CULTURE Stat Lab 12/05/21 14:28 Completed Medication Summary Discontinued Medications Generic Name Dose Route Start Last Admin Trade Name Stefania PRN Reason Stop Dose Admin Hydromorphone HCl 1 mg 12/05/21 14:25 12/05/21 14:35 Hydromorphone 1 Mg/1ml Inj 1 Mg/Ml Syringe IV 12/05/21 14:26 1 mg STAT ONE Administration Hydromorphone HCl Confirm 12/05/21 14:34 Hydromorphone 1 Mg/1ml Inj 1 Mg/Ml Syringe Administered 12/05/21 14:35 Dose 1 mg .ROUTE .STK-MED ONE Sodium Chloride 1,000 mls @ 999 mls/hr 12/05/21 14:25 12/05/21 16:58 Sodium Chloride 0.9% 1000 Ml IV 12/05/21 15:25 Infused .Q1H1M STA Infusion Sodium Chloride Confirm 12/05/21 14:34 Sodium Chloride 0.9% 1000 Ml Administered 12/05/21 14:35 Dose 1,000 mls @ ud .ROUTE .STK-MED ONE Ceftriaxone Sodium/Dextrose 1 g in 50 mls @ 100 mls/hr 12/05/21 16:31 12/05/21 16:58 Rocephin 1 Gm-D5w 50 Ml Bag IV 12/05/21 17:00 Infused STAT STA Infusion Ceftriaxone Sodium/Dextrose Confirm 12/05/21 16:40 Rocephin 1 Gm-D5w 50 Ml Bag Administered 12/05/21 16:41 Dose 1 g in 50 mls @ ud IV .STK-MED ONE Ondansetron HCl 4 mg 12/05/21 14:25 12/05/21 14:35 Ondansetron Hcl 4 Mg/2 Ml Vial IV 12/05/21 14:26 4 mg STAT ONE Administration Ondansetron HCl Confirm 12/05/21 14:34 Ondansetron Hcl 4 Mg/2 Ml Vial Administered 12/05/21 14:35 Dose 4 mg .ROUTE .STK-MED ONE Lab/Rad Data: Laboratory Result Diagrams 12/05/21 14:30 12/05/21 14:30 Laboratory Results 12/05/21 12/05/21 12/05/21 Range/Units 14:30 14:30 14:28 WBC 6.5 (4.0-10.5) x10^3/uL RBC 3.84 L (4.1-5.4) x10^6/uL Hgb 8.5 L (12.0-16.0) g/dL Hct 28.8 L (35-47) % MCV 75.0 L (78-100) fL MCH 22.1 L (26-32) pg MCHC 29.5 L (32-36) g/dL RDW 16.8 H (11.5-14.0) % Plt Count 374 (150-450) x10^3/uL MPV 10.9 (7.5-11.0) fL Gran % 72.1 H (36.0-66.0) % Immature Gran % (Auto) 1.4 H (0.00-0.4) % Nucleat RBC Rel Count 0.0 (0.00-0.1) % Eos # (Auto) 0.02 (0-0.5) x10^3/uL Immature Gran # (Auto) 0.09 H (0.00-0.03) x10^3u/L Absolute Lymphs (auto) 1.22 (1.0-4.6) x10^3/uL Absolute Monos (auto) 0.47 (0.0-1.3) x10^3/uL Absolute Nucleated RBC 0.00 (0.00-0.01) x10^3u/L Lymphocytes % 18.8 L (24.0-44.0) % Monocytes % 7.2 (0.0-12.0) % Eosinophils % 0.3 (0.00-5.0) % Basophils % 0.2 (0.0-0.4) % Absolute Granulocytes 4.68 (1.4-6.9) x10^3/uL Basophils # 0.01 (0-0.4) x10^3/uL Sodium 136 L (137-145) mmol/L Potassium 3.9 (3.5-5.1) mmol/L Chloride 103 (98-107) mmol/L Carbon Dioxide 26 (22-30) mmol/L Anion Gap 10.8 (5-15) MEQ/L BUN 5 L (7-17) mg/dL Creatinine 0.90 (0.52-1.04) mg/dL Estimated GFR > 60.0 ML/MIN Glucose 92 (74-106) mg/dL Calcium 8.6 (8.4-10.2) mg/dL Total Bilirubin 0.30 (0.2-1.3) mg/dL AST 22 (14-36) U/L ALT 24 (0-35) U/L Alkaline Phosphatase 52 (38-126) U/L Serum Total Protein 7.7 (6.3-8.2) g/dL Albumin 3.9 (3.5-5.0) g/dL Urinalys Dipstick Clnc MAIN LAB Urine Color YELLOW (YELLOW) Urine Appearance CLOUDY (CLEAR) Urine pH 5.5 (5-6) Ur Specific Rugby 1.025 (1.005-1.025) POC Urine Protein Conf 30 (Negative) Urine Ketones NEGATIVE (NEGATIVE) Urine Nitrite NEGATIVE (NEGATIVE) Urine Bilirubin NEGATIVE (NEGATIVE) Urine Urobilinogen 0.2 (0-1) mg/dL Urine Leukocytes TRACE (NEGATIVE) Urine WBC (Auto) 26-50 (0-5) /HPF Urine RBC (Auto) >101 (0-2) /HPF U Epithel Cells (Auto) RARE (FEW) /HPF Urine Bacteria (Auto) MODERATE (NEGATIVE) /HPF Urine RBC LARGE (0-5) Hai/ul Urine Mucus (Auto) SLIGHT (NEGATIVE) /HPF Ur Culture Indicated? YES Urine Glucose NEGATIVE (NEGATIVE) mg/dL Urine HCG, Qual (Negative) 12/05/21 Range/Units 14:27 WBC (4.0-10.5) x10^3/uL RBC (4.1-5.4) x10^6/uL Hgb (12.0-16.0) g/dL Hct (35-47) % MCV (78-100) fL MCH (26-32) pg MCHC (32-36) g/dL RDW (11.5-14.0) % Plt Count (150-450) x10^3/uL MPV (7.5-11.0) fL Gran % (36.0-66.0) % Immature Gran % (Auto) (0.00-0.4) % Nucleat RBC Rel Count (0.00-0.1) % Eos # (Auto) (0-0.5) x10^3/uL Immature Gran # (Auto) (0.00-0.03) x10^3u/L Absolute Lymphs (auto) (1.0-4.6) x10^3/uL Absolute Monos (auto) (0.0-1.3) x10^3/uL Absolute Nucleated RBC (0.00-0.01) x10^3u/L Lymphocytes % (24.0-44.0) % Monocytes % (0.0-12.0) % Eosinophils % (0.00-5.0) % Basophils % (0.0-0.4) % Absolute Granulocytes (1.4-6.9) x10^3/uL Basophils # (0-0.4) x10^3/uL Sodium (137-145) mmol/L Potassium (3.5-5.1) mmol/L Chloride (98-107) mmol/L Carbon Dioxide (22-30) mmol/L Anion Gap (5-15) MEQ/L BUN (7-17) mg/dL Creatinine (0.52-1.04) mg/dL Estimated GFR ML/MIN Glucose (74-106) mg/dL Calcium (8.4-10.2) mg/dL Total Bilirubin (0.2-1.3) mg/dL AST (14-36) U/L ALT (0-35) U/L Alkaline Phosphatase (38-126) U/L Serum Total Protein (6.3-8.2) g/dL Albumin (3.5-5.0) g/dL Urinalys Dipstick Clnc Urine Color (YELLOW) Urine Appearance (CLEAR) Urine pH (5-6) Ur Specific Rugby (1.005-1.025) POC Urine Protein Conf (Negative) Urine Ketones (NEGATIVE) Urine Nitrite (NEGATIVE) Urine Bilirubin (NEGATIVE) Urine Urobilinogen (0-1) mg/dL Urine Leukocytes (NEGATIVE) Urine WBC (Auto) (0-5) /HPF Urine RBC (Auto) (0-2) /HPF U Epithel Cells (Auto) (FEW) /HPF Urine Bacteria (Auto) (NEGATIVE) /HPF Urine RBC (0-5) Hai/ul Urine Mucus (Auto) (NEGATIVE) /HPF Ur Culture Indicated? Urine Glucose (NEGATIVE) mg/dL Urine HCG, Qual NEGATIVE (Negative) - Departure Departure Disposition: Home Clinical Impression: UTI (urinary tract infection), Headache, Vomiting, Anemia Condition: Stable Critical Care Time: No Referrals: DOCTOR,NO FAMILY [Primary Care Provider] - Follow up/PCP as directed Additional Instructions: Drink plenty of fluids. Call the resistance brazer office tomorrow morning on 12/06/2021 to see if you can be seen sooner than 12/13/2021. Return to the emergency department if symptoms worsen. Take your medication as prescribed. Continue your iron pills. Prescriptions: Ciprofloxacin [Cipro 500 MG] 500 mg PO BID #14 tablet
[2021-12-05] MEDS ORDERED: Sodium Chloride 0.9% 1000 ML 1,000 ML IV STA (14:25)
[2021-12-05] MEDS ORDERED: Zofran 4 MG/2 ML VIAL IV ONE (14:25)
[2021-12-05] MEDS ORDERED: Hydromorphone 1 mg/ml Injection IV ONE ×2 (14:25→18:16)
[2021-12-05] MEDS ORDERED: Sodium Chloride 0.9% 1000 ML 1,000 ML ONE (14:34)
[2021-12-05] MEDS ORDERED: Hydromorphone 1 mg/ml Injection ONE ×2 (14:34→18:31)
[2021-12-05] MEDS ORDERED: Zofran 4 MG/2 ML VIAL ONE (14:34)
[2021-12-05 15:04] LABS: Appearance CLOUDY (CLEAR); Bilirubin NEGATIVE (NEGATIVE); Dipstick done @ ? MAIN LAB; Glucose NEGATIVE (NEGATIVE); Ketones NEGATIVE (NEGATIVE); Nitrite NEGATIVE (NEGATIVE); Ph 5.5 (5-6); Protein,Urine Dip 30 (Negative); RBC LARGE Ery/ul (0-5); Specific Gravity 1.025 (1.005-1.025); Urobilinogen 0.2 mg/dL (0-1)
[2021-12-05 15:05] LABS: Absolute Neutrophil Ct (ANC) 4.68 x10^3/uL (1.4-6.9); Basophil (Absolute #) 0.01 x10^3/uL (0-0.4); Eosinophil % 0.3 % (0.00-5.0); Eosinophil (Absolute #) 0.02 x10^3/uL (0-0.5); Hematocrit 28.8 % (35-47); Hemoglobin 8.5 g/dL (12.0-16.0); Lymphocyte (Absolute #) 1.22 x10^3/uL (1.0-4.6); Lymphocytes % 18.8 % (24.0-44.0); Mean Corpuscular Hemoglobin 22.1 pg (26-32); Mean Corpuscular Hgb Concent. 29.5 g/dL (32-36); Mean Platelet Volume 10.9 fL (7.5-11.0); Monocyte (Absolute #) 0.47 x10^3/uL (0.0-1.3); Monocytes % 7.2 % (0.0-12.0); Neutrophil % 72.1 % (36.0-66.0); Platelet Count 374 x10^3/uL (150-450); Red Blood Count 3.84 x10^6/uL (4.1-5.4); Red Cell Distribution Width 16.8 % (11.5-14.0); White Blood Count 6.5 x10^3/uL (4.0-10.5)
[2021-12-05 15:06] LABS: ALBUMIN 3.9 g/dL (3.5-5.0); ALKALINE PHOSPHATASE 52 U/L (38-126); ANION GAP 10.8 MEQ/L (5-15); BLOOD UREA NITROGEN 5 mg/dL (7-17); CHLORIDE 103 mmol/L (98-107); Calcium 8.6 mg/dL (8.4-10.2); Carbon Dioxide 26 mmol/L (22-30); EST GLOMERULAR FILTRATION RATE > 60.0 ML/MIN; Glucose 92 mg/dL (74-106); Potassium 3.9 mmol/L (3.5-5.1); SGOT/AST 22 U/L (14-36); SGPT/ALT 24 U/L (0-35); SODIUM 136 mmol/L (137-145); Total Protein 7.7 g/dL (6.3-8.2)
[2021-12-05 15:09] LABS: Epithelial Cells RARE /HPF (FEW); Mucus SLIGHT /HPF (NEGATIVE); WBC 26-50 /HPF (0-5)
[2021-12-05 15:23] LABS: Bacteria MODERATE /HPF (NEGATIVE); RBC >101 /HPF (0-2); Urine Cultured Indicated? YES
[2021-12-05] MEDS ORDERED: ROCEPHIN 1 Gm-D5w 50 ml Bag** 1 G/50 ML IVPB IV STA (16:31)
--- NOTE | 2021-12-05 16:33 | XRAY ---
Indication: Headache 3 weeks. Nausea and vomiting. Multiple contiguous axial images obtained through the head without contrast. Comparison: None Normal appearing brain parenchyma, ventricles, and bony calvarium. Visualized paranasal sinuses and mastoid air cells are clear. Impression: Normal CT head without contrast exam.
[2021-12-05] MEDS ORDERED: ROCEPHIN 1 Gm-D5w 50 ml Bag** 1 G/50 ML IVPB IV ONE (16:40)
[2021-12-05] MEDS ORDERED: TYLENOL 325 MG PO STA (18:43)
[2021-12-05] MEDS ORDERED: TYLENOL 325 MG ONE (18:44)
[2021-12-05 20:09] VITALS: BP 136/81; PULSE 101; O2SAT 97
== END 2021-12-05 20:10 | disposition home or self-care (01) ==
LOC: ED 13:55
DX: N39.0 Urinary tract infection, site not specified (principal); R51.9 Headache, unspecified; R11.10 Vomiting, unspecified; D64.9 Anemia, unspecified; N93.9 Abnormal uterine and vaginal bleeding, unspecified
CPT/HCPCS: 36000; 36415; 70450; 80053; 81015; 81025; 85025; 87040; 87077; 87086; 87186; 94760; 96360; 96365; 96374; 96375; 96376; 99284; J0696; J1170; J2405; A9270-GY

== ENCOUNTER 2021-12-06 11:38 | Emergency (ER) | payer BC ==
--- NOTE | 2021-12-06 12:20 | ERPHSYRPT ---
- History of Present Illness Time Seen by Provider: 12/06/21 12:00 Historian: patient Exam Limitations: no limitations Patient Subjective Stated Complaint: pt states "I have a headachel. I think its from my blood count is low. 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 INVERFORM MACHINE OPERATOR sent patient to our ED for a stat pelvic ultrasound. Patient has been experiencing a headache. Patient attributes her headache to anemia. Patient states she has heavy vaginal bleeding. Patient was in our ED last night for the same. Patient was treated with droperidol per patient. She states her headache then resolved. Patient requesting droperidol. Patient's INVERFORM MACHINE OPERATOR physician specifically wants beta-hCG, CBC, type and screen ultrasound TSH. Per INVERFORM MACHINE OPERATOR physician patient's last hemoglobin was 8.5. Patient otherwise feels well. No associated chest pain or shortness of breath. No nausea vomiting or diaphoresis. Patient voices no other complaints or concerns at this time. Portions of this note were created with voice recognition technology. There may be grammatical, spelling, punctuation or sound alike errors Timing/Duration: today Activities at Onset: none Quality: aching Abdominal Pain Onset Location: other (Vaginal bleeding) Pain Radiation: no radiation Severity of Pain-Max: moderate Severity of Pain-Current: mild Modifying Factors: Improves With: nothing, other (Patient feels symptoms are due to anemia) Associated Symptoms: other (Migraine headache.) Previous symptoms: same symptoms as today Allergies/Adverse Reactions: No Known Drug Allergies Allergy (Verified 12/06/21 11:44) Home Medications: Iron 18 mg PO DAILY 11/29/21 [History] Hx Tetanus, Diphtheria Vaccination/Date Given: Yes Hx Influenza Vaccination/Date Given: No Hx Pneumococcal Vaccination/Date Given: No Travel Risk - International Travel Have you traveled outside of the country in past 3 weeks: No - Coronavirus Screening Are you exhibiting any of the following symptoms?: No Close contact with a COVID-19 positive Pt in past 14-21 Days: No - Vaccine Status Have you recieved a Covid-19 vaccination: Yes 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: [employer] - Vaccination Dates Date of 2cond Vaccination (if applicable): apr 2020 - Review of Systems Constitutional: No Symptoms, No Fever, No Chills Eyes: No Symptoms Ears, Nose, & Throat: No Symptoms Respiratory: No Symptoms, No Cough, No Dyspnea Cardiac: No Symptoms, No Chest Pain, No Edema, No Syncope Abdominal/Gastrointestinal: No Symptoms, No Abdominal Pain, No Nausea, No Vomiting, No Diarrhea Genitourinary Symptoms: No Symptoms, No Dysuria Musculoskeletal: No Symptoms, No Back Pain, No Neck Pain Skin: No Symptoms, No Rash Neurological: No Symptoms, No Dizziness, No Focal Weakness, No Sensory Changes Psychological: No Symptoms Endocrine: No Symptoms Hematologic/Lymphatic: No Symptoms Immunological/Allergic: No Symptoms All Other Systems: Reviewed and Negative - Past Medical History Pertinent Past Medical History: No Neurological History: No Pertinent History ENT History: No Pertinent History Cardiac History: No Pertinent History Respiratory History: Asthma Endocrine Medical History: No Pertinent History Musculoskeletal History: No Pertinent History GI Medical History: No Pertinent History History: No Pertinent History Psycho-Social History: No Pertinent History Female Reproductive Disorders: No Pertinent History Other Medical History: anemia - Past Surgical History Past Surgical History: No Other Surgical History: cyst removed - Social History Smoking Status: Never smoker Exposure to second hand smoke: No Drug Use: none Patient Lives Alone: Yes - Female History Hx Last Menstrual Period: 12/06/21 Hx Now: No - Nursing Vital Signs Nursing Vital Signs: Initial Vital Signs Temperature 99.1 F 12/06/21 11:44 Pulse Rate 98 H 12/06/21 11:44 Respiratory Rate 18 12/06/21 11:44 Blood Pressure 128/86 12/06/21 11:44 O2 Sat by Pulse Oximetry 100 12/06/21 11:44 Pain Scale Pain Intensity 7 - Physical Exam General Appearance: no apparent distress, alert Eye Exam: PERRL/EOMI, eyes nml inspection Ears, Nose, Throat Exam: normal ENT inspection, pharynx normal, moist mucous membranes Neck Exam: normal inspection, non-tender, supple, full range of motion Respiratory Exam: normal breath sounds, lungs clear, airway intact, No respiratory distress Cardiovascular Exam: regular rate/rhythm, normal heart sounds Gastrointestinal/Abdomen Exam: soft, No tenderness, No mass Back Exam: normal inspection, normal range of motion, No CVA tenderness, No v ertebral tenderness Extremity Exam: normal inspection, normal range of motion, pelvis stable Neurologic Exam: alert, oriented x 3, cooperative, normal mood/affect, nml cerebellar function, sensation nml, No motor deficits Skin Exam: normal color, warm, dry Lymphatic Exam: No adenopathy SpO2 Interpretation: normal SpO2: 100 O2 Delivery: Room Air - Course Nursing assessment & vital signs reviewed: Yes - Radiology Ultrasound Exam Pelvis Ultrasound: tele radiology report (Nabothian cyst. Pelvic ultrasound otherwise negative) Ordered Tests: Active Orders 24 hr Category Date Time Status PELVIS TRANS VAGINAL [US] Stat Exams 12/06/21 12:19 Completed CBC W DIFF Stat Lab 12/06/21 12:56 Completed CMP Stat Lab 12/06/21 12:56 Completed HCG, Quantitative (Inhouse) Stat Lab 12/06/21 12:56 Completed TSH [TSH, 3RD Generation] Stat Lab 12/06/21 12:56 Completed Medication Summary Discontinued Medications Generic Name Dose Route Start Last Admin Trade Name Freq PRN Reason Stop Dose Admin Droperidol 5 mg 12/06/21 12:26 12/06/21 12:30 Droperidol 5 Mg/2 Ml Vial IV 12/06/21 12:27 5 mg STAT ONE Administration Droperidol Confirm 12/06/21 12:28 Droperidol 5 Mg/2 Ml Vial Administered 12/06/21 12:29 Dose 5 mg .ROUTE .[facility] ONE Lab/Rad Data: Laboratory Result Diagrams 12/06/21 12:56 12/06/21 12:56 Laboratory Results 12/06/21 12/06/21 12/06/21 Range/Units 12:56 12:56 12:56 WBC (4.0-10.5) x10^3/uL RBC (4.1-5.4) x10^6/uL Hgb (12.0-16.0) g/dL Hct (35-47) % MCV (78-100) fL MCH (26-32) pg MCHC (32-36) g/dL RDW (11.5-14.0) % Plt Count (150-450) x10^3/uL MPV (7.5-11.0) fL Gran % (36.0-66.0) % Immature Gran % (Auto) (0.00-0.4) % Nucleat RBC Rel Count (0.00-0.1) % Eos # (Auto) (0-0.5) x10^3/uL Immature Gran # (Auto) (0.00-0.03) x10^3u/L Absolute Lymphs (auto) (1.0-4.6) x10^3/uL Absolute Monos (auto) (0.0-1.3) x10^3/uL Absolute Nucleated RBC (0.00-0.01) x10^3u/L Lymphocytes % (24.0-44.0) % Monocytes % (0.0-12.0) % Eosinophils % (0.00-5.0) % Basophils % (0.0-0.4) % Absolute Granulocytes (1.4-6.9) x10^3/uL Basophils # (0-0.4) x10^3/uL Sodium (137-145) mmol/L Potassium (3.5-5.1) mmol/L Chloride (98-107) mmol/L Carbon Dioxide (22-30) mmol/L Anion Gap (5-15) MEQ/L BUN (7-17) mg/dL Creatinine (0.52-1.04) mg/dL Estimated GFR ML/MIN Glucose (74-106) mg/dL Calcium (8.4-10.2) mg/dL Total Bilirubin (0.2-1.3) mg/dL AST (14-36) U/L ALT (0-35) U/L Alkaline Phosphatase (38-126) U/L Serum Total Protein (6.3-8.2) g/dL Albumin (3.5-5.0) g/dL TSH 3rd Generation 1.510 (0.47-4.68) mIU/L Beta HCG, Quant < 2.39 mIU/ml Slides for Path Review ABO Group AB Rh Factor POSITIVE Antibody Screen NEGATIVE (NEGATIVE) 12/06/21 12/06/21 Range/Units 12:56 12:56 WBC 7.8 (4.0-10.5) x10^3/uL RBC 3.69 L (4.1-5.4) x10^6/uL Hgb 8.0 L (12.0-16.0) g/dL Hct 28.5 L (35-47) % MCV 77.2 L (78-100) fL MCH 21.7 L (26-32) pg MCHC 28.1 L (32-36) g/dL RDW 17.0 H (11.5-14.0) % Plt Count 340 (150-450) x10^3/uL MPV 10.4 (7.5-11.0) fL Gran % 69.3 H (36.0-66.0) % Immature Gran % (Auto) 1.5 H (0.00-0.4) % Nucleat RBC Rel Count 0.0 (0.00-0.1) % Eos # (Auto) 0.03 (0-0.5) x10^3/uL Immature Gran # (Auto) 0.12 H (0.00-0.03) x10^3u/L Absolute Lymphs (auto) 1.43 (1.0-4.6) x10^3/uL Absolute Monos (auto) 0.79 (0.0-1.3) x10^3/uL Absolute Nucleated RBC 0.00 (0.00-0.01) x10^3u/L Lymphocytes % 18.4 L (24.0-44.0) % Monocytes % 10.1 (0.0-12.0) % Eosinophils % 0.4 (0.00-5.0) % Basophils % 0.3 (0.0-0.4) % Absolute Granulocytes 5.40 (1.4-6.9) x10^3/uL Basophils # 0.02 (0-0.4) x10^3/uL Sodium 139 (137-145) mmol/L Potassium 4.0 (3.5-5.1) mmol/L Chloride 103 (98-107) mmol/L Carbon Dioxide 27 (22-30) mmol/L Anion Gap 13.1 (5-15) MEQ/L BUN 4 L (7-17) mg/dL Creatinine 0.92 (0.52-1.04) mg/dL Estimated GFR > 60.0 ML/MIN Glucose 90 (74-106) mg/dL Calcium 8.8 (8.4-10.2) mg/dL Total Bilirubin 0.20 (0.2-1.3) mg/dL AST 21 (14-36) U/L ALT 24 (0-35) U/L Alkaline Phosphatase 46 (38-126) U/L Serum Total Protein 7.1 (6.3-8.2) g/dL Albumin 3.9 (3.5-5.0) g/dL TSH 3rd Generation (0.47-4.68) mIU/L Beta HCG, Quant mIU/ml Slides for Path Review YES ABO Group Rh Factor Antibody Screen (NEGATIVE) - Progress Progress: improved Progress Note: Patient reassessed. Headache resolved. Work-up reveals anemia of 8.0. Blood loss likely coming from vaginal bleed. Patient will be admitted for blood transfusion. Blood transfusion ordered. COVID test pending. Patient will be admitted to the on-call physician. We will notify of plan of care. Plan of care discussed with patient. She agrees to admission at [facility] for further evaluation and treatment. Portions of this note were created with voice recognition technology. There may be grammatical, spelling, punctuation or sound alike errors 12/06/21 13:[address] Donnelly who already reviewed patient's ultrasound. Patient will be sent to his office right now. He will insert an IUD. Patient will then be a direct admit under Dr. Gaspar. Plan of care discussed with Dr. Gaspar. He agrees to direct admit. Patient will be directly admitted for a blood transfusion. Plan of care discussed with patient. She agrees to see Dr. Teresa's office for an IUD then to return to our hospital for admission for blood transfusion. 12/06/21 14:03 Discussed with : Nahed Warner Will see patient in: hospital (observation), office Counseled pt/family regarding: lab results, diagnosis, rad results - Departure Departure Disposition: Home Clinical Impression: Symptomatic anemia, Vaginal bleeding Condition: Stable Critical Care Time: No Referrals: SHAWNA GASPAR MD [ACTIVE STAFF] - Follow up/PCP as directed Additional Instructions: Please return directly back to our hospital for direct admission for your blood transfusion Discharge/Care Plan ARNALDO KNOWLES was seen on 12/06/21 in the Emergency Room. The patient was counseled regarding Diagnosis,Lab results, Imaging studies, need for follow up and when to return to the Emergency Room. Prescriptions given: Discharge Note I have spoken with the patient and/or caregivers. I have explained the patient's condition, diagnosis and treatment plan based on the information available to me at this time. I have answered the patient's and/or caregiver's questions and addressed any concerns. The patient and/or caregivers have as good understanding of the patient's diagnosis, condition and treatment plan as can be expected at this point. The vital signs have been stable. The patient's condition is stable and appropriate for discharge from the emergency department. The patient will pursue further outpatient evaluation with the primary care physician or other designated or consulting physician as outlined in the discharge instructions. The patient and/or caregivers are agreeable to this plan of care and follow-up instructions have been explained in detail. The patient and/or caregivers have received these instruction. The patient/and or caregivers are aware that any significant change in condition or worsening of symptoms should prompt an immediate return to this or the closest emergency department or call 911.
[2021-12-06 12:55] LABS: Basophil (Absolute #) 0.02 x10^3/uL (0-0.4); Eosinophil % 0.4 % (0.00-5.0); Eosinophil (Absolute #) 0.03 x10^3/uL (0-0.5); Hematocrit 28.5 % (35-47); Lymphocyte (Absolute #) 1.43 x10^3/uL (1.0-4.6); Lymphocytes % 18.4 % (24.0-44.0); Mean Cell Volume 77.2 fL (78-100); Mean Corpuscular Hemoglobin 21.7 pg (26-32); Mean Corpuscular Hgb Concent. 28.1 g/dL (32-36); Mean Platelet Volume 10.4 fL (7.5-11.0); Monocyte (Absolute #) 0.79 x10^3/uL (0.0-1.3); Monocytes % 10.1 % (0.0-12.0); Neutrophil % 69.3 % (36.0-66.0); Platelet Count 340 x10^3/uL (150-450); Red Blood Count 3.69 x10^6/uL (4.1-5.4); White Blood Count 7.8 x10^3/uL (4.0-10.5)
[2021-12-06 13:12] LABS: ALBUMIN 3.9 g/dL (3.5-5.0); ALKALINE PHOSPHATASE 46 U/L (38-126); ANION GAP 13.1 MEQ/L (5-15); BLOOD UREA NITROGEN 4 mg/dL (7-17); CHLORIDE 103 mmol/L (98-107); Calcium 8.8 mg/dL (8.4-10.2); Carbon Dioxide 27 mmol/L (22-30); Creatinine 1 0.92 mg/dL (0.52-1.04); EST GLOMERULAR FILTRATION RATE > 60.0 ML/MIN; Glucose 90 mg/dL (74-106); SGOT/AST 21 U/L (14-36); SGPT/ALT 24 U/L (0-35); SODIUM 139 mmol/L (137-145); Total Protein 7.1 g/dL (6.3-8.2)
[2021-12-06 13:25] LABS: Slide Review 1 YES
--- NOTE | 2021-12-06 13:29 | XRAY ---
Indication: Bleeding 1 month. Two-dimensional transvaginal pelvic sonogram performed. Comparison: None Uterus anteverted measuring 7.4 x 3.7 x 4.1 cm. Lower uterine segment demonstrates nabothian cysts, largest 7 mm. Endometrial stripe measures 10.7 mm. No endometrial cavity mass or fluid collection. Right ovary measures 3.5 x 3.1 x 3.4 cm and the left measures 3.7 x 2.5 x 2.9 cm. Normal perfusion and follicular cysts bilaterally. No suspicious adnexal mass or free fluid. Impression: Nabothian cysts. Remaining transvaginal pelvic sonogram is negative.
[2021-12-06 13:43] LABS: ABO TYPING AB; Antibody Screen NEGATIVE (NEGATIVE); RH TYPING POSITIVE
[2021-12-06 13:54] VITALS: O2SAT 100
[2021-12-06 14:08] VITALS: BP 115/64
[2021-12-06 14:10] VITALS: PULSE 79
[2021-12-06 14:40] LABS: INFLUENZA A NEGATIVE (NEGATIVE); INFLUENZA B NEGATIVE (NEGATIVE); RESPIRATORY SYNCTIAL VIRUS NEGATIVE (Negative); SARS-CoV-2 Xpert Express NEGATIVE (NEGATIVE)
[2021-12-06 15:10] LABS: CROSS MATCH (PRBC) COMPATIBLE (COMPATIBLE)
== END 2021-12-06 14:12 | disposition home or self-care (01) ==
LOC: ED 11:38
DX: D64.9 Anemia, unspecified (principal); N93.9 Abnormal uterine and vaginal bleeding, unspecified; R51.9 Headache, unspecified
CPT/HCPCS: 0241U; 36415; 76830; 80053; 84443; 84702; 85025; 86850; 86900; 86901; 86922; 96374; 99283

== ENCOUNTER 2021-12-06 14:09 | Observation (INO) | payer BC ==
[2021-12-06] MEDS: Sodium Chloride 0.9% 1000 ML 1,000 ML IV SCH (17:01)
[2021-12-06] MEDS ORDERED: TYLENOL 325 MG PO PRN (18:04)
[2021-12-06] MEDS: NORCO 7.5/325 MG TAB PO PRN ×2 (18:07→21:45)
[2021-12-07] MEDS: NORCO 7.5/325 MG TAB PO PRN ×4 (03:37→23:56)
[2021-12-07 04:55] LABS: Hematocrit 26.7 % (35-47); Hemoglobin 7.7 g/dL (12.0-16.0); Mean Cell Volume 75.2 fL (78-100); Mean Corpuscular Hemoglobin 21.7 pg (26-32); Mean Corpuscular Hgb Concent. 28.8 g/dL (32-36); Mean Platelet Volume 10.2 fL (7.5-11.0); Platelet Count 308 x10^3/uL (150-450); Red Blood Count 3.55 x10^6/uL (4.1-5.4); Red Cell Distribution Width 16.9 % (11.5-14.0); White Blood Count 7.2 x10^3/uL (4.0-10.5)
[2021-12-07] MEDS ORDERED: IRON 28 MG PO SCH (10:00)
[2021-12-07] MEDS ORDERED: ROCEPHIN 1 Gm-D5w 50 ml Bag** 1 G/50 ML IVPB IV SCH (10:00)
[2021-12-07] MEDS: FEOSOL 325 MG PO SCH (10:24)
[2021-12-07] MEDS: ROCEPHIN 2 Gm-D5w 50ML BAG** 2 G/50 ML IVPB IV SCH (10:24)
[2021-12-07] MEDS ORDERED: Sodium Chloride 0.9% 500 ML 500 ML IV SCH (10:45)
--- NOTE | 2021-12-07 11:16 | PCM.HP ---
History of Present Illness - Chief Complaint Chief Complaint: ANEMIA History of Present Illness: is a 21 year old female. pt is a 21 yo g0 lmp several months ago with long standing hx of irregular vaginal bleeding for the past several months not alleviated with ocp and depoprovera. was seen in er two days ago and had hgb at 8.5 and yesterday hgb was at 8. pt had hgb in july and was 11. pt currently with headache and states having headaches when she feels anemic. pt was seen in office yesterday and had Mirena IUD placed to alleviate her symptoms and rx for provera 10mg bid for 15 days was given to her. pt states plan on going back to [place] in 5 days. denies any other complaints. Medications & Allergies Home Medications: Home Medication List Acetaminophen 500 mg [Tylenol Extra Strength 500 mg] 500 mg PO DAILY 12/06 [History Confirmed 12/06/21] Iron 28 mg PO DAILY 12/06/21 [History Confirmed 12/07/21] Allergies/Adverse Reactions: Allergies Allergy/AdvReac Type Severity Reaction Status Date / Time No Known Drug Allergies Allergy Verified 12/06/21 15:06 - Past Medical History Past Medical History: No Neurological History: No Pertinent History ENT History: No Pertinent History Cardiac History: No Pertinent History Respiratory History: Asthma Endocrine Medical History: No Pertinent History Musculoskelatal History: No Pertinent History GI Medical History: No Pertinent History History: No Pertinent History Pyscho-Social History: No Pertinent History Reproductive Disorders: No Pertinent History Comment: anemia - Female History Are you now?: No - Past Surgical History Past Surgical History: No Other Surgical History: cyst removed - Social History Smoking Status: Never smoker Exposure to second hand smoke: No Alcohol: None Drug Use: none - Physical Exam Vital Signs: Vital Signs - 24 hr Temp Pulse Resp BP Pulse Ox 12/07/21 08:00 97.1 F 90 18 130/73 93 L 12/07/21 03:41 97.0 F 96 H 18 126/68 96 12/07/21 00:00 98.9 F 87 17 126/69 93 L 12/06/21 20:00 97.8 F 103 H 18 130/72 96 12/06/21 16:00 98.1 F 88 15 135/75 97 12/06/21 15:12 98.1 F 88 15 135/75 97 General Appearance: moderate distress Neurologic Exam: oriented x 3 Pelvic Exam: other (moderate vaginal bleeding noted on exam in office mirena iud placed) Results - Labs Lab/Micro Results: Lab Results-Last 24 Hours 12/07/21 Range/Units 04:30 WBC 7.2 (4.0-10.5) x10^3/uL RBC 3.55 L (4.1-5.4) x10^6/uL Hgb 7.7 L (12.0-16.0) g/dL Hct 26.7 L (35-47) % MCV 75.2 L (78-100) fL MCH 21.7 L (26-32) pg MCHC 28.8 L (32-36) g/dL RDW 16.9 H (11.5-14.0) % Plt Count 308 (150-450) x10^3/uL MPV 10.2 (7.5-11.0) fL Assessment/Plan (1) Abnormal uterine bleeding Current Visit: Yes Status: Acute Code(s): N93.9 - ABNORMAL UTERINE AND VAGINAL BLEEDING, UNSPECIFIED (2) Anemia Current Visit: No Status: Acute Qualifiers: Iron deficiency anemia type: chronic blood loss Code(s): D64.9 - ANEMIA, UNSPECIFIED
[2021-12-07 18:49] LABS: Hematocrit 33.1 % (35-47)
[2021-12-07 18:59] LABS: Hemoglobin 9.7 g/dL (12.0-16.0)
[2021-12-07] MEDS ORDERED: Cyclobenzaprine 10 MG PO PRN (19:46)
[2021-12-07] MEDS: Compazine 5 MG PO PRN ×2 (20:00→23:56)
[2021-12-07] MEDS: Sodium Chloride 0.9% 1000 ML 1,000 ML IV SCH (21:00)
[2021-12-08] MEDS: ROCEPHIN 2 Gm-D5w 50ML BAG** 2 G/50 ML IVPB IV SCH (10:11)
[2021-12-08] MEDS: FEOSOL 325 MG PO SCH (10:11)
[2021-12-08] MEDS: NORCO 7.5/325 MG TAB PO PRN ×3 (10:14→20:42)
[2021-12-08] MEDS: Cyclobenzaprine 10 MG PO SCH ×2 (14:20→22:13)
[2021-12-08] MEDS: Compazine 5 MG PO SCH ×2 (14:20→22:13)
--- NOTE | 2021-12-08 15:55 | PCM.SSS ---
History of Present Illness - Chief Complaint Chief Complaint: vaginal bleeding, anemia History of Present Illness: is a 21 year old female pt of Dr. Donnelly, admitted to hospital with anem ia, metrorrhagia, and LOPEZ. Hgb was < 8. Pt received 2 units PRBC; states in the past receiving a transfusion has helped her LOPEZ, but this one is persistent. It's 7/10 and currently occipital, although sometimes hurts in the frontal area. Last night, as her norco wasn't working for LOPEZ, she was given compazine and flexeril; in the middle of the night she said her LOPEZ resolved, but it returned this morning. The meds are ordered prn but she hasn't received any today. She will be given the flexeril and compazine again; if resolves LOPEZ, she will be discharged to home. If it's persistent, will re-image the pt and consider doing LP, although she has not had any fever. - Review of Systems Constitutional: Fatigue Abdominal/Gastrointestinal: Nausea Neurological: Headache Psychological: Anxiety All Other Systems: Reviewed and Negative Medications & Allergies Home Medications: Home Medication List Acetaminophen 500 mg [Tylenol Extra Strength 500 mg] 500 mg PO DAILY 12/06/21 [History Confirmed 12/06/21] Iron 28 mg PO DAILY 12/06/21 [History Confirmed 12/07/21] Allergies/Adverse Reactions: Allergies Allergy/AdvReac Type Severity Reaction Status Date / Time No Known Drug Allergies Allergy Verified 12/06/21 15:06 - Past Medical History Past Medical History: No Neurological History: No Pertinent History ENT History: No Pertinent History Cardiac History: No Pertinent History Respiratory History: Asthma Endocrine Medical History: No Pertinent History Musculoskelatal History: No Pertinent History GI Medical History: No Pertinent History History: No Pertinent History Pyscho-Social History: No Pertinent History Reproductive Disorders: No Pertinent History Comment: anemia - Female History Are you now?: No - Past Surgical History Past Surgical History: No Other Surgical History: cyst removed - Social History Smoking Status: Never smoker Exposure to second hand smoke: No Alcohol: None Drug Use: none - Physical Exam Vital Signs: Vital Signs - 24 hr Temp Pulse Resp BP Pulse Ox 12/08/21 12:00 96.8 F 83 21 120/75 92 L 12/08/21 08:00 98.6 F 85 21 114/55 92 L 12/08/21 04:00 97.0 F 71 18 121/62 98 12/08/21 00:00 99.3 F 95 H 18 119/67 95 12/07/21 20:00 97.7 F 87 18 127/71 97 12/07/21 16:00 98.2 F 87 18 136/72 96 General Appearance: mild distress (eyes closed when I enter the room and off and on through interview.), obese Neurologic Exam: alert, cooperative, other (CN III-XII intact bilat; CN II difficult to assess due to some photophobia. Kernig and Brudzinski are neg.) Eye Exam: eyes nml inspection Ears, Nose, Throat Exam: moist mucous membranes Neck Exam: normal inspection, other (mild anterior cervical ttp; no masses or lesions.) Respiratory Exam: normal breath sounds, lungs clear, No crackles/rales, No rhonchi, No wheezing Cardiovascular Exam: regular rate/rhythm, normal heart sounds, No murmur Gastrointestinal/Abdomen Exam: soft, normal bowel sounds, No tenderness, No distention, No mass, No guarding, No rebound Back Exam: normal inspection, No rash Extremity Exam: normal inspection Skin Exam: normal color, warm, dry, No rash, No petechiae Results - Labs Lab/Micro Results: Lab Results-Last 24 Hours 12/07/21 Range/Units 18:40 Hgb 9.7 L D (12.0-16.0) g/dL Hct 33.1 L (35-47) % Hospital Summary - Hospital Course Hospital Course: Pt is 21 yo female with hx metrorrhagia who was admitted for anemia/blood transfusion. She has a persistent LOPEZ; if can get it to improve with compazine/flexeril, will send pt home. If not, will begin w/u for viral meningitis. - Vitals & Intake/Output Vital Signs: Vital Signs Temperature 96.8 F 12/08/21 12:00 Pulse Rate 83 12/08/21 12:00 Respiratory Rate 21 12/08/21 12:00 Blood Pressure 120/75 12/08/21 12:00 O2 Sat by Pulse Oximetry 92 L 12/08/21 12:00 Intake & Output: Intake & Output 12/06/21 12/07/21 12/08/21 12/09/21 11:59 11:59 11:59 11:59 Intake Total 710 2782 Output Total 900 1700 Balance -190 1082 Weight 168.3 kg 168.8 kg - Lab Result Diagrams: 12/07/21 18:40 Lab Results-Last 24 Hrs: Lab Results-Last 24 Hours 12/07/21 Range/Units 18:40 Hgb 9.7 L D (12.0-16.0) g/dL Hct 33.1 L (35-47) % - Discharge Disposition: Home, Self-Care Condition: Stable Prescriptions: No Action Iron 28 mg PO DAILY Acetaminophen 500 mg [Tylenol Extra Strength 500 mg] 500 mg PO DAILY Follow up with: DOCTOR,NO FAMILY [Primary Care Provider] -
[2021-12-08 18:41] LABS: Absolute Neutrophil Ct (ANC) 7.63 x10^3/uL (1.4-6.9); Basophil (Absolute #) 0.02 x10^3/uL (0-0.4); Eosinophil % 1.4 % (0.00-5.0); Eosinophil (Absolute #) 0.14 x10^3/uL (0-0.5); Hematocrit 32.4 % (35-47); Hemoglobin 9.5 g/dL (12.0-16.0); Lymphocyte (Absolute #) 1.55 x10^3/uL (1.0-4.6); Lymphocytes % 15.4 % (24.0-44.0); Mean Cell Volume 77.9 fL (78-100); Mean Corpuscular Hemoglobin 22.8 pg (26-32); Mean Corpuscular Hgb Concent. 29.3 g/dL (32-36); Mean Platelet Volume 10.2 fL (7.5-11.0); Monocyte (Absolute #) 0.67 x10^3/uL (0.0-1.3); Monocytes % 6.7 % (0.0-12.0); Neutrophil % 75.9 % (36.0-66.0); Platelet Count 317 x10^3/uL (150-450); Red Blood Count 4.16 x10^6/uL (4.1-5.4); Red Cell Distribution Width 17.4 % (11.5-14.0); White Blood Count 10.1 x10^3/uL (4.0-10.5)
[2021-12-08 19:10] LABS: ALBUMIN 3.5 g/dL (3.5-5.0); ALKALINE PHOSPHATASE 44 U/L (38-126); ANION GAP 8.3 MEQ/L (5-15); BLOOD UREA NITROGEN 8 mg/dL (7-17); CHLORIDE 104 mmol/L (98-107); Calcium 8.3 mg/dL (8.4-10.2); Carbon Dioxide 26 mmol/L (22-30); Creatinine 1 0.82 mg/dL (0.52-1.04); EST GLOMERULAR FILTRATION RATE > 60.0 ML/MIN; Glucose 104 mg/dL (74-106); PROCALCITONIN 0.173 ng/mL (0.030-0.080); Potassium 3.9 mmol/L (3.5-5.1); SGOT/AST 18 U/L (14-36); SGPT/ALT 22 U/L (0-35); SODIUM 135 mmol/L (137-145)
[2021-12-08] MEDS ORDERED: TRANEXAMIC ACID 1000 MG/10 ML 1,000 MG in Sodium Chloride 0.9% 100 ML IV ONE (20:11)
[2021-12-08] MEDS ORDERED: TRANEXAMIC ACID 1000 MG/10 ML ONE (20:18)
[2021-12-08] MEDS ORDERED: Sodium Chloride 0.9% 100 ML ONE (20:18)
[2021-12-08] MEDS: Sodium Chloride 0.9% 1000 ML 1,000 ML IV SCH (20:47)
[2021-12-09] MEDS: Sodium Chloride 0.9% 1000 ML 1,000 ML IV SCH (06:14)
[2021-12-09 08:26] LABS: Hematocrit 30.8 % (35-47); Mean Cell Volume 77.6 fL (78-100); Mean Corpuscular Hemoglobin 22.7 pg (26-32); Mean Corpuscular Hgb Concent. 29.2 g/dL (32-36); Mean Platelet Volume 9.9 fL (7.5-11.0); Platelet Count 276 x10^3/uL (150-450); Red Blood Count 3.97 x10^6/uL (4.1-5.4); Red Cell Distribution Width 17.5 % (11.5-14.0); White Blood Count 9.4 x10^3/uL (4.0-10.5)
[2021-12-09] MEDS: Cyclobenzaprine 10 MG PO SCH ×2 (08:27→16:25)
[2021-12-09] MEDS: Compazine 5 MG PO SCH ×3 (08:27→21:38)
[2021-12-09] MEDS: FEOSOL 325 MG PO SCH (08:27)
[2021-12-09] MEDS: ROCEPHIN 2 Gm-D5w 50ML BAG** 2 G/50 ML IVPB IV SCH (08:29)
[2021-12-09 08:49] LABS: ANION GAP 10.2 MEQ/L (5-15); BLOOD UREA NITROGEN 8 mg/dL (7-17); CHLORIDE 105 mmol/L (98-107); Calcium 8.2 mg/dL (8.4-10.2); Carbon Dioxide 25 mmol/L (22-30); Creatinine 1 0.74 mg/dL (0.52-1.04); EST GLOMERULAR FILTRATION RATE > 60.0 ML/MIN; Glucose 85 mg/dL (74-106); Potassium 4.3 mmol/L (3.5-5.1); SODIUM 136 mmol/L (137-145)
--- NOTE | 2021-12-09 12:40 | PCM.NOTE ---
Date and Time: 12/09/21 1235 Subjective Assessment: when pt got TXA last night (ordered by Dr Donnelly), her headache went away briefly. Her vag bleeding is now very light. however, the LOPEZ returned shortely and is now 6/10. Also, she feels subjectively like she has a horizontal nystagmus, although that's not apparent on exam. She does have migraines chroni madison but this is worse than her normal headache, and the fact that she's had it for days is abnormal for her. - Review of Systems Constitutional: No Fever Neurological: Headache Objective Exam General Appearance: mild distress, alert Neurologic Exam: oriented x 3, cooperative, other (CN II difficult to assess due eye color and photophobia. CN III-XII intact bilat. Cell Stripper Final 5/5 bilat. Neg Kernig.) Skin Exam: normal color, warm, dry, No rash Eye Exam: eyes nml inspection Ears, Nose, Throat Exam: moist mucous membranes Neck Exam: normal inspection, other (mild ttp posteriorly.) Respiratory Exam: normal breath sounds, lungs clear, No crackles/rales, No rhonchi, No wheezing Cardiovascular Exam: regular rate/rhythm, normal heart sounds, No murmur Gastrointestinal/Abdomen Exam: soft, normal bowel sounds Extremity Exam: normal inspection, No pedal edema, No swelling Back Exam: normal inspection, No rash OBJECTIVE DATA Vital Signs: Vital Signs - 24 hr Temp Pulse Resp BP Pulse Ox 12/09/21 12:00 98.4 F 74 21 142/84 97 12/09/21 08:00 97.8 F 74 22 122/60 96 12/09/21 04:00 97.8 F 74 16 113/58 94 L 12/08/21 23:57 97.5 F 91 H 20 106/55 95 12/08/21 20:00 97.1 F 97 H 18 126/70 95 12/08/21 16:00 97.3 F 83 19 119/57 95 Pain Assessment - Last Documented Pain Intensity 0 Pain Scale Used 0-10 Pain Scale Intake and Output: Intake & Output 12/07/21 12/08/21 12/09/21 12/10/21 11:59 11:59 11:59 11:59 Intake Total 710 9142 2058 Output Total 900 1700 1700 Balance -190 1082 358 Weight 168.3 kg 168.8 kg 163.9 kg Lab Results: Lab Results-Last 24 Hours 12/08/21 12/08/21 12/08/21 Range/Units 18:35 18:35 18:43 WBC 10.1 (4.0-10.5) x10^3/uL RBC 4.16 (4.1-5.4) x10^6/uL Hgb 9.5 L (12.0-16.0) g/dL Hct 32.4 L (35-47) % MCV 77.9 L (78-100) fL MCH 22.8 L (26-32) pg MCHC 29.3 L (32-36) g/dL RDW 17.4 H (11.5-14.0) % Plt Count 317 (150-450) x10^3/uL MPV 10.2 (7.5-11.0) fL Gran % 75.9 H (36.0-66.0) % Immature Gran % (Auto) 0.4 (0.00-0.4) % Nucleat RBC Rel Count 0.0 (0.00-0.1) % Eos # (Auto) 0.14 (0-0.5) x10^3/uL Immature Gran # (Auto) 0.04 H (0.00-0.03) x10^3u/L Absolute Lymphs (auto) 1.55 (1.0-4.6) x10^3/uL Absolute Monos (auto) 0.67 (0.0-1.3) x10^3/uL Absolute Nucleated RBC 0.00 (0.00-0.01) x10^3u/L Lymphocytes % 15.4 L (24.0-44.0) % Monocytes % 6.7 (0.0-12.0) % Eosinophils % 1.4 (0.00-5.0) % Basophils % 0.2 (0.0-0.4) % Absolute Granulocytes 7.63 H (1.4-6.9) x10^3/uL Basophils # 0.02 (0-0.4) x10^3/uL Sodium 135 L (137-145) mmol/L Potassium 3.9 (3.5-5.1) mmol/L Chloride 104 (98-107) mmol/L Carbon Dioxide 26 (22-30) mmol/L Anion Gap 8.3 (5-15) MEQ/L BUN 8 (7-17) mg/dL Creatinine 0.82 (0.52-1.04) mg/dL Estimated GFR > 60.0 ML/MIN Glucose 104 (74-106) mg/dL Lactic Acid 1.2 (0.4-2.0) Calcium 8.3 L (8.4-10.2) mg/dL Total Bilirubin 0.20 (0.2-1.3) mg/dL AST 18 (14-36) U/L ALT 22 (0-35) U/L Alkaline Phosphatase 44 (38-126) U/L Serum Total Protein 7.0 (6.3-8.2) g/dL Albumin 3.5 (3.5-5.0) g/dL Procalcitonin 0.173 H (0.030-0.080) ng/mL 12/09/21 12/09/21 Range/Units 08:15 08:15 WBC 9.4 (4.0-10.5) x10^3/uL RBC 3.97 L (4.1-5.4) x10^6/uL Hgb 9.0 L (12.0-16.0) g/dL Hct 30.8 L (35-47) % MCV 77.6 L (78-100) fL MCH 22.7 L (26-32) pg MCHC 29.2 L (32-36) g/dL RDW 17.5 H (11.5-14.0) % Plt Count 276 (150-450) x10^3/uL MPV 9.9 (7.5-11.0) fL Gran % (36.0-66.0) % Immature Gran % (Auto) (0.00-0.4) % Nucleat RBC Rel Count (0.00-0.1) % Eos # (Auto) (0-0.5) x10^3/uL Immature Gran # (Auto) (0.00-0.03) x10^3u/L Absolute Lymphs (auto) (1.0-4.6) x10^3/uL Absolute Monos (auto) (0.0-1.3) x10^3/uL Absolute Nucleated RBC (0.00-0.01) x10^3u/L Lymphocytes % (24.0-44.0) % Monocytes % (0.0-12.0) % Eosinophils % (0.00-5.0) % Basophils % (0.0-0.4) % Absolute Granulocytes (1.4-6.9) x10^3/uL Basophils # (0-0.4) x10^3/uL Sodium 136 L (137-145) mmol/L Potassium 4.3 (3.5-5.1) mmol/L Chloride 105 (98-107) mmol/L Carbon Dioxide 25 (22-30) mmol/L Anion Gap 10.2 (5-15) MEQ/L BUN 8 (7-17) mg/dL Creatinine 0.74 (0.52-1.04) mg/dL Estimated GFR > 60.0 ML/MIN Glucose 85 (74-106) mg/dL Lactic Acid (0.4-2.0) Calcium 8.2 L (8.4-10.2) mg/dL Total Bilirubin (0.2-1.3) mg/dL AST (14-36) U/L ALT (0-35) U/L Alkaline Phosphatase (38-126) U/L Serum Total Protein (6.3-8.2) g/dL Albumin (3.5-5.0) g/dL Procalcitonin (0.030-0.080) ng/mL Assessment/Plan (1) Headache Current Visit: No Status: Acute Qualifiers: Headache type: other headache syndrome Qualified Code(s): G44.89 - Other headache syndrome Assessment & Plan: different than her usual migraine; worse, more persistent. Has subjective feeling of nystagmus. Consult teleneurology. Has been minimally better with flexeril and compazine. Was using tylenol and norco prior to that. Biggest issue is that in 5d she has to drive back to her home in the [facility]. Code(s): R51.9 - HEADACHE, UNSPECIFIED (2) Abnormal uterine bleeding Current Visit: Yes Status: Chronic Assessment & Plan: managed by Dr. Donnelly. Much less with TXA. Code(s): N93.9 - ABNORMAL UTERINE AND VAGINAL BLEEDING, UNSPECIFIED
[2021-12-09] MEDS ORDERED: PROVERA10 MG PO ONE (15:45)
[2021-12-09] MEDS ORDERED: TORAdol 30 mg Injection IV ONE (22:00)
[2021-12-09] MEDS ORDERED: Compazine 10 MG/2 ML IV ONE (22:00)
[2021-12-09] MEDS ORDERED: BENADRYL 50 MG/ML IV ONE (22:00)
[2021-12-10] MEDS: Cyclobenzaprine 10 MG PO SCH ×2 (00:31→09:36)
[2021-12-10] MEDS: FEOSOL 325 MG PO SCH (09:36)
[2021-12-10] MEDS: Compazine 5 MG PO SCH (09:36)
--- NOTE | 2021-12-10 09:55 | PCM.DS ---
Discharge Summary Date of Admission: 12/06/21 14:53 Date of Discharge: 12/10/21 Admitting Physician: SHAWNA GASPAR Consults: Consults on Case 12/07/21 13:37 Consult Physician ROUTINE 12/09/21 09:51 Consult Neurology ROUTINE Primary Care Provider: NO FAMILY DOCTOR Allergies Allergies No Known Drug Allergies Allergy (Verified 12/06/21 15:06) Hospital Summary - Hospital Course Hospital Course: Patient is a 21 yr old patient of Dr Gaspar's who was admitted by Dr Donnelly,[employer],for anemia due to heavy irregular menses. Hgb on admission was 7.7 and post transfusion 9.7,today is 9.0. Mirena was placed and 5 day course of Provera initiated. Vaginal bleeding is very light yesterday and today. Patient ambulating in room without weakness or dizziness. Patient developed intractable migraine which subsided after Migraine cocktail last night (see orders). 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 She will see PCP,Dr Gaspar and [employer], Dr Donnelly in follow up. - Vitals & Intake/Output Vital Signs: Vital Signs Temperature 98.1 F 12/10/21 07:38 Pulse Rate 70 12/10/21 07:38 Respiratory Rate 16 12/10/21 07:38 Blood Pressure 112/56 12/10/21 07:38 O2 Sat by Pulse Oximetry 100 12/10/21 07:38 Intake & Output: Intake & Output 12/07/21 12/08/21 12/09/21 12/10/21 11:59 11:59 11:59 11:59 Intake Total 710 2782 2058 1080 Output Total 900 1700 1700 Balance -190 5883 292 7804 Weight 168.3 kg 168.8 kg 163.9 kg 163.6 kg - Lab Result Diagrams: 12/09/21 08:15 12/09/21 08:15 Discharge Exam General Appearance: no apparent distress Neurologic Exam: alert, oriented x 3, cooperative, normal mood/affect Respiratory Exam: normal breath sounds Cardiovascular Exam: regular rate/rhythm Gastrointestinal/Abdomen Exam: soft, normal bowel sounds (nontender) Back Exam: other (tender right paracervical at occiput chronic ropey spasm) Extremity Exam: normal inspection - Discharge Disposition: Home, Self-Care Condition: Stable Prescriptions: No Action Iron 28 mg PO DAILY Acetaminophen 500 mg [Tylenol Extra Strength 500 mg] 500 mg PO DAILY Follow up with: DOCTOR,NO FAMILY [Primary Care Provider] -
[2021-12-10] MEDS ORDERED: PROVERA10 MG PO SCH (10:00)
[2021-12-10 12:01] VITALS: BP 136/91; PULSE 88; O2SAT 96
--- NOTE | 2021-12-10 12:33 | PCM.DCORD ---
- Discharge Disposition: Home, Self-Care Condition: Stable Prescriptions: New Medroxyprogesterone Acet [[id number] mg] 10 mg PO BID #6 tablet Cyclobenzaprine HCl 5 mg PO HS #30 tablet Continue Iron 28 mg PO DAILY Acetaminophen 500 mg [Tylenol Extra Strength 500 mg] 500 mg PO DAILY Follow up with: DOCTOR,NO FAMILY [Primary Care Provider] -
[2021-12-10 14:59] LABS: TSH, 3RD Generation 3.28 mIU/L (0.47-4.68)
== END 2021-12-10 13:38 | disposition home or self-care (01) ==
LOC: MED SURG 14:53
PROVIDERS: ADMIT Family Medicine; ATTEND Family Medicine
DX: N93.9 Abnormal uterine and vaginal bleeding, unspecified (principal); D64.9 Anemia, unspecified; R51.9 Headache, unspecified; Z79.899 Other long term (current) drug therapy; Z20.828 Contact with and (suspected) exposure to other viral communicable diseases
CPT/HCPCS: 36415; 36430; 80048; 80053; 82607; 83605; 84145; 84443; 85014; 85018; 85025; 85027; P9016; G0378; J0696; J1200; J1885; A9270-GY

== ENCOUNTER 2021-12-11 22:38 | Emergency (ER) | payer BC | END 2021-12-11 23:55 | disposition left against medical advice (07) | LOC: ED 22:38 | DX: Z53.21 Procedure and treatment not carried out due to patient leaving prior to being seen by health care provider (principal) ==

== ENCOUNTER 2021-12-12 18:18 | Emergency (ER) | payer BC ==
--- NOTE | 2021-12-12 19:22 | ERPHSYRPT ---
- History of Present Illness Time Seen by Provider: 12/12/21 19:22 Source: patient Exam Limitations: no limitations Patient Subjective Stated Complaint: c/o pain with flexion to right wrist with swelling post peripheral IV infusions Triage Nursing Assessment: Patient is alert and oriented. Radial pulse present in right wrist. Area is slightly swollen. Small puncture noted from old IV site. Physician History: Patient is 21-year-old female otherwise healthy started having right wrist pain with swelling around the wrist area with pain and tenderness for last 2 days. Patient was seen in the emergency room 5 days ago and at that time IV was started in that area. When patient was discharged patient did not have any pain but in last 2 days patient started having swelling and pain in the right wrist area with some radiation to the elbow. She denies any fever chills nausea vomiting or any other problems. Occurred: days ago (two days) Method of Injury: other (IV access site) Quality: constant Severity of Pain-Max: moderate Extremities Pain Location: wrist: right Modifying Factors: Improves With: nothing Associated Symptoms: none Body Map: 1 - zrea of pain and swelling Allergies/Adverse Reactions: No Known Drug Allergies Allergy (Verified 12/12/21 18:45) Home Medications: Iron 28 mg PO DAILY 12/06/21 [History] Ciprofloxacin [Cipro 500 MG] 1 tab PO BID 12/12/21 [History] Hx Tetanus, Diphtheria Vaccination/Date Given: Yes Hx Influenza Vaccination/Date Given: No Hx Pneumococcal Vaccination/Date Given: No Immunizations Up to Date: Yes Travel Risk - International Travel Have you traveled outside of the country in past 3 weeks: No - Coronavirus Screening Are you exhibiting any of the following symptoms?: No Close contact with a COVID-19 positive Pt in past 14-21 Days: No - Vaccine Status Have you recieved a Covid-19 vaccination: Yes 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[employer]: [employer] - Vaccination Dates Date of 2cond Vaccination (if applicable): apr 2020 - Review of Systems Constitutional: No Fever, No Chills Eyes: No Symptoms Ears, Nose, & Throat: No Symptoms Respiratory: No Cough, No Dyspnea Cardiac: No Chest Pain, No Edema, No Syncope Abdominal/Gastrointestinal: No Abdominal Pain, No Nausea, No Vomiting, No Diarrhea Genitourinary Symptoms: No Dysuria Musculoskeletal: Joint Redness, Joint Swelling (right wrist), No Back Pain, No Neck Pain Skin: No Rash Neurological: No Dizziness, No Focal Weakness, No Sensory Changes Psychological: No Symptoms Endocrine: No Symptoms All Other Systems: Reviewed and Negative - Past Medical History Pertinent Past Medical History: No Neurological History: No Pertinent History ENT History: No Pertinent History Cardiac History: No Pertinent History Respiratory History: Asthma Endocrine Medical History: No Pertinent History Musculoskeletal History: No Pertinent History GI Medical History: No Pertinent History History: No Pertinent History Psycho-Social History: No Pertinent History Female Reproductive Disorders: No Pertinent History Other Medical History: anemia - Past Surgical History Past Surgical History: Yes Other Surgical History: cyst removed from tailbone and left breast - Social History Smoking Status: Never smoker Exposure to second hand smoke: No Drug Use: none Patient Lives Alone: No - Female History Hx Last Menstrual Period: 11/12/21 Hx Now: No - Nursing Vital Signs Nursing Vital Signs: Initial Vital Signs Temperature 97.3 F 12/12/21 18:46 Pulse Rate 100 H 12/12/21 18:46 Respiratory Rate 18 12/12/21 18:46 Blood Pressure 125/91 12/12/21 18:46 O2 Sat by Pulse Oximetry 100 12/12/21 18:46 Pain Scale Pain Intensity 5 - Physical Exam General Appearance: alert Eyes, Ears, Nose, Throat Exam: moist mucous membranes Neck Exam: non-tender, supple Cardiovascular/Respiratory Exam: chest non-tender, normal breath sounds, regular rate/rhythm, no respiratory distress Abdominal Exam: non-tender, No guarding Back Exam: normal inspection, No vertebral tenderness Wrist Exam: pain (with movement), soft tissue tenderness, No deformity Neuro/Tendon Exam: normal sensation, normal motor functions Mental Status Exam: alert, oriented x 3, cooperative Skin Exam: normal color, warm, dry SpO2: 100 - Course Nursing assessment & vital signs reviewed: Yes - Radiology Exams Wrist X-ray Interpretation: Reviewed by me, Negative, Nml Soft Tissues Ordered Tests: Active Orders 24 hr Category Date Time Status WRIST (MIN 3 VIEWS) Stat Exams 12/12/21 19:22 Taken Medication Summary Discontinued Medications Generic Name Dose Route Start Last Admin Trade Name Freq PRN Reason Stop Dose Admin Ceftriaxone Sodium 1,000 mg 12/12/21 19:23 12/12/21 19:41 Ceftriaxone Sodium 1000 Mg Inj Vial IM 12/12/21 19:24 1,000 mg STAT ONE Administration Ceftriaxone Sodium Confirm 12/12/21 19:27 Ceftriaxone Sodium 1000 Mg Inj Vial Administered 12/12/21 19:28 Dose 1,000 mg .ROUTE .STK-MED ONE Ketorolac Tromethamine 60 mg 12/12/21 19:23 12/12/21 19:41 Ketorolac Tromethamine 30 Mg/Ml Inj IM 12/12/21 19:24 60 mg STAT ONE Administration Ketorolac Tromethamine Confirm 12/12/21 19:27 Ketorolac Tromethamine 30 Mg/Ml Inj Administered 12/12/21 19:28 Dose 60 mg .ROUTE .STK-MED ONE Lidocaine HCl Confirm 12/12/21 19:27 Lidocaine Hcl 1% 20 Ml Mdv 20 Ml Ml Administered 12/12/21 19:28 Dose 2 ml .ROUTE .STK-MED ONE - Progress Progress: unchanged, pain not gone completely Counseled pt/family regarding: diagnosis, need for follow-up, rad results - Departure Departure Disposition: Home Clinical Impression: Cellulitis of right wrist Condition: Stable Critical Care Time: No Referrals: DOCTOR,NO FAMILY [Primary Care Provider] - Follow up/PCP as directed Instructions: Cellulitis (Skin Infection), Adult (DC) Additional Instructions: Discharge/Care Plan TREVOR KNOWLESJAH Soco was seen on 12/12/21 in the Emergency Room. The patient was counseled regarding Diagnosis,Lab results, Imaging studies, need for follow up and when to return to the Emergency Room. Prescriptions given: Discharge Note I have spoken with the patient and/or caregivers. I have explained the patient's condition, diagnosis and treatment plan based on the information available to me at this time. I have answered the patient's and/or caregiver's questions and addressed any concerns. The patient and/or caregivers have as good understanding of the patient's diagnosis, condition and treatment plan as can be expected at this point. The vital signs have been stable. The patient's condition is stable and appropriate for discharge from the emergency department. The patient will pursue further outpatient evaluation with the primary care physician or other designated or consulting physician as outlined in the discharge instructions. The patient and/or caregivers are agreeable to this plan of care and follow-up instructions have been explained in detail. The patient and/or caregivers have received these instruction. The patient/and or caregivers are aware that any significant change in condition or worsening of symptoms should prompt an immediate return to this or the closest emergency department or call 911. ARNALDO KNOWLES was seen on 12/12/21 n the Emergency Room. At that time you were treated for an emergent condition, during your visit Laboratory, Radiology and/or other procedures may have been ordered. It is very important that you follow-up with your Primary Care Physician NO FAMILY DOCTOR within the next 24- 48 hours to review your Emergency Room visit and the final results of testing that was ordered. Some test results such as Urine Cultures, Blood Cultures, and other cultures if ordered will not be finalized for 24-48 hours. If you do not have a Primary Care Provider please call the medical records department at [phone] to obtain a copy of your results or you may sign into our patient portal to obtain these results by visiting us @ [email or web address] and completing the following steps: 1. Click on the Patient Portal link 2. Click the Patient Self Enrollment Link to complete the enrollment form and entering your 3. Once the enrollment form is completed you will receive an email with a temporary ID and password at the email address you provided. 4. Next choose a user name and password. Your user name must be at least 4 characters long and your password must be at least 4 characters long. 5. Choose a security question from the list and provide your answer to the question. If you already have signed into the Health Portal you may access your Health Care Information 23/09 by the following steps: 1. Login to our website @ [email or web address] 2. Enter your original user name and password. FAQS The [facility] Health Portal is an online tool that contains your Lab Results, Radiology Reports, Visit History, Discharge Instructions and Health Summary Lab and Radiology Results will not be available for 72 hours on the portal. The Portal is a secure site, passwords are encryted and URLs are re-written so they cannot be copied and pasted. You and authorized family members are the only ones who can access your Portal. Also there is a timeout feature that protects your information if you leave the Portal page open. If you have technical difficulty please use the Contact Us link on the page this will allow you to submit any questions you have regarding the Portal or you may contact the Medical Record Department at [phone]. Prescriptions: Indomethacin, Submicronized [Tivorbex] 20 mg PO TID #15 cap
[2021-12-12] MEDS ORDERED: TORAdol 30 mg Injection IM ONE (19:23)
[2021-12-12] MEDS ORDERED: Rocephin 1000 MG INJ IM ONE (19:23)
[2021-12-12] MEDS ORDERED: TORAdol 30 mg Injection ONE (19:27)
[2021-12-12] MEDS ORDERED: XYLOCAINE 1% HCL 20 ML MDV ONE (19:27)
[2021-12-12] MEDS ORDERED: Rocephin 1000 MG INJ ONE (19:27)
[2021-12-12 19:44] VITALS: BP 137/110; PULSE 98
[2021-12-12 19:46] VITALS: O2SAT 100
--- NOTE | 2021-12-13 08:42 | XRAY ---
Indication: Pain and swelling. No known injury. Comparison: None 3 view right wrist obtained. No bony, articular, or soft tissue abnormalities.
== END 2021-12-12 19:48 | disposition home or self-care (01) ==
LOC: ED 18:18
DX: L03.113 Cellulitis of right upper limb (principal); M25.531 Pain in right wrist
CPT/HCPCS: 73110; 96372; 99283; J0696; J1885